=== PATIENT | female | born 1975 | race Caucasian/White ===

== ENCOUNTER 2018-10-28 16:38 | Emergency (ER) | payer OTHER, SELFPAY ==
[~2018-10-28] VITALS: Ht 160 cm; Wt 95.5 kg
[2018-10-28 16:39] VITALS: BP 165/90
[2018-10-28] MEDS ORDERED: ACETAMINOPHEN 325 MG TAB PO ONE (17:30)
[2018-10-28 18:16] LABS: BASO % 0.3 % (0.0-1.0); EOS % 0.3 % (0.0-3.0); HEMATOCRIT 37.4 % (36.0-47.0); HEMOGLOBIN 12.5 g/dl (12.0-15.5); LYMPH # 0.6 10^3/uL (1.5-4.5); LYMPH % 6.1 % (24.0-44.0); MEAN CORPUSCULAR HEMOGLOBIN 30.5 pg (27.0-33.0); MEAN CORPUSCULAR HGB CONC 33.4 g/dl (32.0-36.5); MEAN CORPUSCULAR VOLUME 91.2 fl (80.0-96.0); MONO # 0.4 10^3/uL (0.0-0.8); MONO % 4.4 % (0.0-5.0); NEUTROPHILS # 7.9 10^3/uL (1.8-7.7); NEUTROPHILS % 88.1 % (36.0-66.0); PLATELET COUNT, AUTOMATED 335 10^3/uL (150-450)
[2018-10-28 18:40] LABS: ALBUMIN 3.7 GM/DL (3.2-5.2); ALT/SGPT 271 U/L (12-78); BLOOD UREA NITROGEN 7 MG/DL (7-18); CALCIUM LEVEL 9.4 MG/DL (8.5-10.1); CARBON DIOXIDE LEVEL 27 MEQ/L (21-32); CHLORIDE LEVEL 102 MEQ/L (98-107); GLOMERULAR FILTRATION RATE > 60.0 (>58); GLUCOSE, FASTING 89 MG/DL (70-100); LIPASE 64 U/L (73-393); POTASSIUM SERUM 4.1 MEQ/L (3.5-5.1); SODIUM LEVEL 136 MEQ/L (136-145); TOTAL PROTEIN 6.9 GM/DL (6.4-8.2)
[2018-10-28] MEDS ORDERED: DOXY100C37 PO (18:54)
[2018-10-28] MEDS ORDERED: DOXYCYCLINE HYCLATE 100 MG TAB PO ONE (19:00)
--- NOTE | 2018-10-28 21:41 | ECGEPIP ---
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
[2018-10-31 14:12] LABS: Lyme Disease IgG Ab 18 kDa Ban Present (.); Lyme Disease IgG Ab 23 kDa Ban Present (.); Lyme Disease IgG Ab 28 kDa Ban Absent (.); Lyme Disease IgG Ab 30 kDa Ban Absent (.); Lyme Disease IgG Ab 39 kDa Ban Absent (.); Lyme Disease IgG Ab 41 kDa Ban Present (.); Lyme Disease IgG Ab 45 kDa Ban Absent (.); Lyme Disease IgG Ab 58 kDa Ban Absent (.); Lyme Disease IgG Ab 66 kDa Ban Absent (.); Lyme Disease IgG Ab 93 kDa Ban Absent (.); Lyme Disease IgG West Blot Int Negative (.); Lyme Disease IgG/IgM Antibodie 1.77 ISR (0.00-0.90); Lyme Disease IgM Ab 23 kDa Ban Present (.); Lyme Disease IgM Ab 39 kDa Ban Absent (.); Lyme Disease IgM Ab 41 kDa Ban Present (.); Lyme Disease IgM Ab Quantitati 5.75 index (0.00-0.79); Lyme Disease IgM West Blot Int Positive (.)
== END 2018-10-28 19:07 | disposition home or self-care (01) ==
LOC: M ED 16:38
DX: L53.8 Other specified erythematous conditions (principal); R50.9 Fever, unspecified; R94.5 Abnormal results of liver function studies; Z72.0 Tobacco use

== ENCOUNTER → 2019-07-11 | Outpatient (CLI) | payer OTHER ==
[~2019-07-11] MED LIST: DOXY100C37 PO
--- NOTE | 2019-07-18 10:12 | REP ---
BILATERAL MAMMOGRAM WITH 3D TOMOSYNTHESIS AND BILATERAL BREAST ULTRASOUND: [facility] lifetime risk of breast cancer 12.4%. History of palpable lump upper outer quadrant right breast for 3 weeks. Indentation and palpable lump left breast upper outer quadrant. Baseline study. Bilateral mammogram performed in the MLO and CC projections with 3D tomosynthesis. Additional spot compression views are performed bilaterally at the site of the marked palpable lump in the upper outer quadrant of each breast. There is moderate fibroglandular density bilaterally. There is a large spiculated mass in the upper outer quadrant of the left breast approximately 3.5 cm in diameter. The overlying skin is mildly retracted. Just anterior to this, there is a 1.5 cm oval nodule, which appears fairly smoothly marginated with mild lobulations. On the right, there is an oval nodule at 6-o'clock position in the mid third of the breast approximately 1.5 cm in diameter. This appears fairly smoothly marginated. In the posterior aspect of the upper outer quadrant of the right breast, there is a fairly smoothly marginated nodule approximately 1.7 cm in diameter. No other mass is visualized mammographically in the right breast. No clustered microcalcifications are seen. Breast parenchyma is moderately dense bilaterally, particularly in the upper outer quadrants. VOLPARA breast density is C. Real-time sonographic evaluation of bilateral breasts is performed. On the right, in the 8-o'clock position region at the site of the smoothly marginated nodule posteriorly, a hypoechoic area is seen demonstrating internal blood flow measuring 1.7 x 0.7 x 1.6 cm. This is at 8-o'clock position, 11 cm from the nipple. In that same region, 8 cm from the nipple, there is a 5 mm hypoechoic nodule. At the 6-o'clock position, at the site of the oval smoothly marginated nodule, there is a hypoechoic nodule with internal blood flow measuring 1.1 x 1.1 x 1.2 cm, 4 cm from the nipple. At the site of the palpable lump in the anterior to mid third of the right breast in the upper outer quadrant, there is a complex cystic area containing a septation with a posterior nodular component containing internal echoes. This measures 7 x 7 x 8 mm. In the left breast at the site of the palpable lump and skin retraction, where a large spiculated mass is seen on the mammogram, there is sonographic correlate of a spiculated mass containing internal blood flow measuring 4.5 x 2.3 x 1.5 cm. There is distal acoustic shadowing. This is 4 cm from the nipple. Anterior to this, at the site of the smoothly marginated nodule, is a hypoechoic nodule, which is somewhat lobulated. It measures 1.8 x 0.9 x 1.0 cm. IMPRESSION: BIRADS 4: BI-RADS/ACR category 4 mammogram. Suspicious Abnormality - biopsy should be considered. ACR 4 suspicious mammogram right breast. At the site of the palpable lump in the upper outer quadrant, there is a lobulated complex septated cystic structure with a posterior hypoechoic nodular component demonstrating a maximum diameter of 8 mm. More posteriorly, by mammography a 1.7 cm smoothly marginated nodule is seen which is hypoechoic and demonstrates internal blood flow by ultrasound. There is another adjacent 5 mm hypoechoic nodule. Another 1.2 cm hypoechoic nodule is seen at 6-o'clock position seen by both mammography and ultrasound. Recommend ultrasound guided biopsy of all four of these nodules, or alternatively, they could be evaluated with breast MRI. BIRADS 5: BI-RADS/ACR category 5 mammogram. Highly Suggestive of Malignancy - appropriate action should be taken. ACR 5 left breast mammogram, with findings compatible with cancer. Large spiculated mass is seen in the upper outer quadrant of the left breast. This is seen both mammographically and sonographically. Just anterior to this, a lobulated hypoechoic nodule is seen measuring 1.8 x 0.9 x 1.0 cm. This should be biopsied. This mammogram was interpreted with the aid of an FDA-approved computer-aided detection system. A. Negative x-ray reports should not delay biopsy if a dominant or clinically suspicious mass is present. B. Four to eight percent of cancers are not identified by x-ray. C. Adenosis and dense breasts may obscure an underlying neoplasm. The patient states she/he had a clinical breast exam in June 2019. The patient letter being requested is M4
== END ==
LOC: M WHC 08:48
PROVIDERS: ATTEND Physician Assistant
DX: N63.11 Unspecified lump in the right breast, upper outer quadrant (principal); N63.21 Unspecified lump in the left breast, upper outer quadrant
CPT/HCPCS: 76642; 77066; G0279

== ENCOUNTER → 2019-07-25 | Outpatient (REF) | payer OTHER ==
[2019-07-25 12:25] LABS: BLOOD UREA NITROGEN 11 MG/DL (7-18); CALCIUM LEVEL 9.5 MG/DL (8.5-10.1); CARBON DIOXIDE LEVEL 26 MEQ/L (21-32); CHLORIDE LEVEL 106 MEQ/L (98-107); CREATININE FOR GFR 0.82 MG/DL (0.55-1.30); GLOMERULAR FILTRATION RATE > 60.0 (>58); GLUCOSE, FASTING 97 MG/DL (70-100); SODIUM LEVEL 140 MEQ/L (136-145)
== END ==
LOC: M PLALAB 08:39
PROVIDERS: ATTEND Surgery
DX: C50.912 Malignant neoplasm of unspecified site of left female breast (principal)

== ENCOUNTER → 2019-07-26 | Outpatient (CLI) | payer OTHER ==
[~2019-07-26] MED LIST changes: +PROHANCE 279.3MG/ML 15ML VIAL As Ordered ONE; +PROHANCE 279.3MG/ML 5ML VIAL As Ordered ONE
--- NOTE | 2019-07-29 11:10 | REP ---
MRI BILATERAL BREASTS WITH AND WITHOUT CONTRAST: HISTORY: Invasive lobular carcinoma left breast. COMPARISON: Mammogram and ultrasound 07/11/2019. TECHNIQUE: Multiple sequences obtained the in axial, coronal, and sagittal planes prior to and following the intravenous administration of 17 mL ProHance. The images are evaluated on the BigRep software including dynamic post-IV gadolinium axial T1 fat sat images, subtraction images, color overlay images, CAD images and MIP reconstruction images. Moderate fibroglandular tissue is seen bilaterally. There is moderate background parenchymal enhancement bilaterally. There are scattered subcentimeter cysts bilaterally. A round hyperintense nodule on T2-weighted images is seen in the upper outer quadrant of the left breast, which demonstrates mild persistent enhancement consistent with a fibroadenoma. This measures approximately 1.4 cm in diameter. More posteriorly in the outer left breast, extending into the upper and lower quadrants, is a large spiculated mass. This is the mass that was biopsied, with biopsy clip noted within the mass. There is a small amount of postbiopsy hemorrhage along the margin of the mass. The mass measures 4.2 x 2.8 x 2.7 cm. It is located approximately 6 cm from the nipple. A lobulated 7 mm nodule is seen along the anterior lateral margin of the mass at its superior aspect. This demonstrates suspicious washout enhancement, as does the spiculated mass. Just anterior to the mid aspect of the mass is a 6 mm suspicious nodule with irregular margins also demonstrating washout type enhancement. This is suspicious for a small satellite nodule. Another small satellite nodule is seen along the inferior margin of the mass measuring 4 mm in diameter. Approximately 2 cm anterior to the dominant spiculated mass in the lower outer quadrant is a 6 mm spiculated nodule demonstrating suspicious enhancement characteristics. At about the 12-o'clock position, There is an oval spiculated mass demonstrating suspicious enhancement characteristics approximately 4 cm from the nipple. This measures 8 x 6 x 11 mm. Posterolateral to this irregular mass at 12-o'clock position, there may be two 3 mm satellite nodules with suspicious enhancement. There appear to be two adjacent 3 mm nodules demonstrating suspicious enhancement 2 cm posterior to the superior margin of the spiculated dominant mass. In the right breast, posterolateral aspect at about the level of the nipple, is an irregular heterogeneous enhancing nodule. Measuring about 1.2 cm in diameter. This demonstrates some central washout enhancement and is suspicious. Several normal sized left axillary lymph nodes are present. There is a mildly enlarged right axillary lymph node in addition to other subcentimeter lymph nodes. The mildly enlarged lymph node measures about 1.6 cm in short axis. IMPRESSION: BIRADS category 6 known breast cancer. The biopsied spiculated mass in the outer left breast demonstrates suspicious enhancement. There is a biopsy clip noted at the inferior margin of the mass. There are several small subcentimeter suspicious satellite nodules seen, one just inferior to the dominant mass and two others along the anterior margin of the mass. Another suspicious nodule is seen 2 cm anterior to the dominant mass at it inferior aspect. Yet another suspicious oval irregular nodule is seen at 12-o'clock position of the left breast. Posterolateral to this irregular mass at 12-o'clock position, there may be two 3 mm satellite nodules with suspicious enhancement. There appear to be two adjacent 3 mm nodules demonstrating suspicious enhancement 2 cm posterior to the superior margin of the spiculated dominant mass. A nodule most consistent with a fibroadenoma is seen in the upper outer quadrant of the left breast measuring 1.4 cm in diameter demonstrating smooth margins and central persistent enhancement. In the right breast, at the level of the nipple posterolaterally in the axillary tail, there is an irregular heterogeneous enhancing suspicious nodule 1.2 cm in diameter. This was seen on the ultrasound of 07/18/2019. This should be biopsied. There is a mildly enlarged right axillary lymph node 1.5 cm in short axis. Electronically Signed by August Harp MD 07/29/2019 12:17 P
== END ==
LOC: M RAD 14:49
PROVIDERS: ATTEND Surgery
DX: C50.912 Malignant neoplasm of unspecified site of left female breast (principal); N63.10 Unspecified lump in the right breast, unspecified quadrant; R59.9 Enlarged lymph nodes, unspecified
CPT/HCPCS: A9576; C8908

== ENCOUNTER → 2019-08-20 | Outpatient (REF) | payer OTHER ==
[~2019-08-20] MED LIST changes: -PROHANCE 279.3MG/ML 15ML VIAL As Ordered ONE; -PROHANCE 279.3MG/ML 5ML VIAL As Ordered ONE
[2019-08-20 11:03] LABS: HEMATOCRIT 37.7 % (36.0-47.0); HEMOGLOBIN 12.7 g/dl (12.0-15.5); MEAN CORPUSCULAR HEMOGLOBIN 31.1 pg (27.0-33.0); MEAN CORPUSCULAR HGB CONC 33.7 g/dl (32.0-36.5); MEAN CORPUSCULAR VOLUME 92.2 fl (80.0-96.0); PLATELET COUNT, AUTOMATED 261 10^3/uL (150-450); RED BLOOD COUNT 4.09 10^6/uL (4.00-5.40); WHITE BLOOD COUNT 6.4 10^3/uL (4.0-10.0)
[2019-08-20 12:45] LABS: ALBUMIN 3.9 GM/DL (3.2-5.2); ALT/SGPT 27 U/L (12-78); BILIRUBIN,TOTAL 0.7 MG/DL (0.2-1.0); BLOOD UREA NITROGEN 9 MG/DL (7-18); CALCIUM LEVEL 9.8 MG/DL (8.5-10.1); CARBON DIOXIDE LEVEL 28 MEQ/L (21-32); CHLORIDE LEVEL 107 MEQ/L (98-107); CHOLESTEROL LEVEL 214 MG/DL (<200); CREATININE FOR GFR 0.72 MG/DL (0.55-1.30); GLOMERULAR FILTRATION RATE > 60.0 (>58); GLUCOSE, FASTING 109 MG/DL (70-100); HDL CHOLESTEROL 50 MG/DL (>40); LDL CHOLESTEROL 142 MG/DL (<100); NON-HDL-C 164 MG/DL; POTASSIUM SERUM 4.3 MEQ/L (3.5-5.1); SODIUM LEVEL 138 MEQ/L (136-145); THYROID STIMULATING HORMONE 0.425 uIU/ML (0.358-3.740); TOTAL 25(OH) VITAMIN D 27.2 NG/ML (30.0-100.0); TOTAL PROTEIN 6.6 GM/DL (6.4-8.2); TRIGLYCERIDES LEVEL 110 MG/DL (<150)
== END ==
LOC: M PLALAB 08:10
PROVIDERS: ATTEND Nurse Practitioner Family
DX: R53.83 Other fatigue (principal); R03.0 Elevated blood-pressure reading, without diagnosis of hypertension

== ENCOUNTER → 2019-08-23 | Outpatient (CLI) | payer OTHER ==
[~2019-08-23] MED LIST changes: +PROHANCE 279.3MG/ML 15ML VIAL As Ordered ONE; +PROHANCE 279.3MG/ML 5ML VIAL As Ordered ONE
--- NOTE | 2019-08-23 15:57 | REPVR ---
PROCEDURE INFORMATION: Exam: MR Head Without and With Contrast Exam date and time: 08/23/2019 2:53 PM Age: 44 years old Clinical indication: Condition or disease; History of cancer (specify primary cancer site): ; Primary cancer: Breast; Additional info: Breast CA ? mets TECHNIQUE: Imaging protocol: MR of the head without and with intravenous contrast. Contrast material: PROHANCE; Contrast volume: 17 ml; Contrast route: IV; COMPARISON: No relevant prior studies available. FINDINGS: Brain: There is no acute intracranial hemorrhage, cerebral edema, or midline shift. No restricted diffusion is present to suggest acute infarction. No enhancing lesions were identified after the administration of contrast. Ventricles: No hydrocephalus. Bones/joints: Unremarkable. Sinuses: Normal as visualized. No acute sinusitis. Mastoid air cells: Normal as visualized. No mastoid effusion. Orbits: Unremarkable. Soft tissues: Unremarkable. IMPRESSION: No acute findings. Electronically signed by: Vicenet Padilla On 08/23/2019 15:56:44 PM
== END ==
LOC: M RAD 13:45
PROVIDERS: ATTEND Internal Medicine Medical Oncology
DX: C50.919 Malignant neoplasm of unspecified site of unspecified female breast (principal)
CPT/HCPCS: 70553; A9576

== ENCOUNTER → 2019-08-27 | Outpatient (CLI) | payer OTHER ==
[~2019-08-27] MED LIST changes: +LIDOCAINE 1% MDV 20ML VIAL As Ordered ONE; -PROHANCE 279.3MG/ML 15ML VIAL As Ordered ONE; -PROHANCE 279.3MG/ML 5ML VIAL As Ordered ONE; +SODIUM BICARBONATE 8.4% INJ 50MEQ 50 ML VIAL As Ordered ONE
[2019-08-27 12:15] VITALS: BP 140/88
--- NOTE | 2019-08-27 14:23 | REP ---
RIGHT AXILLARY ULTRASOUND: Right axillary ultrasound performed and correlated with the breast MRI of 07/26/2019 which demonstrated enlarged right axillary lymph node. I observed the technologist in real-time scanning the right axillary region. A lymph node is identified in the right axillary region, which is mildly enlarged. It measures 2.2 x 0.9 x 1.6 cm. Ultrasound-guided biopsy of this lymph node is subsequently performed. Unreviewed
--- NOTE | 2019-08-28 21:34 | REP ---
ULTRASOUND-GUIDED RIGHT BREAST BIOPSY The procedure was performed under the direct supervision of Dr. Harp. The patient has a history of a mildly enlarged right axillary lymph node seen on a previous MRI dated 07/26/2019. The risks and benefits of the procedure were explained to the patient and informed consent was obtained. The right axillary lymph node was localized using ultrasound guidance. The skin was prepped and draped in a sterile fashion. 1% lidocaine was used as a local anesthetic. Using ultrasound guidance a 14-gauge coaxial needle biopsy system was inserted and advanced into the lymph node. Seven core biopsy samples were obtained and sent to lab. A marker clip was placed at the biopsy site. The patient tolerated the procedure well and there were no immediate complications. After the appropriate amount of monitored convalescence the patient was discharged from the department. Electronically Signed by LUIS EDUARDO Delgado 08/27/2019 03:47 P Electronically Signed by August Harp MD 08/28/2019 09:26 P
== END ==
LOC: M IRPRO 10:25
PROVIDERS: ATTEND Surgery
DX: R59.0 Localized enlarged lymph nodes (principal); R92.8 Other abnormal and inconclusive findings on diagnostic imaging of breast; C50.912 Malignant neoplasm of unspecified site of left female breast; Z17.0 Estrogen receptor positive status [ER+]

== ENCOUNTER → 2019-08-27 | Outpatient (CLI) | payer OTHER ==
[~2019-08-27] MED LIST changes: -LIDOCAINE 1% MDV 20ML VIAL As Ordered ONE; -SODIUM BICARBONATE 8.4% INJ 50MEQ 50 ML VIAL As Ordered ONE
== END ==
LOC: M WHC 08:28
PROVIDERS: ATTEND Surgery
DX: C50.912 Malignant neoplasm of unspecified site of left female breast (principal); Z17.0 Estrogen receptor positive status [ER+]; R59.0 Localized enlarged lymph nodes; Z53.9 Procedure and treatment not carried out, unspecified reason

== ENCOUNTER → 2019-09-03 | Outpatient (CLI) | payer OTHER ==
[~2019-09-03] MED LIST changes: +GASTROGRAFIN SOLUTION 30ML (Q9963) As Ordered ONE; +ISOVUE-370 76% 100ML VIAL As Ordered ONE
--- NOTE | 2019-09-03 13:53 | REP ---
REASON: History of breast carcinoma. COMPARISON: None. CONTRAST: 100 mL Isovue 370. For a description of the lung bases, please see the CT chest report made the same day. There are surgical clips seen in the gallbladder fossa from previous cholecystectomy. The liver, spleen, pancreas, adrenal glands, and kidneys are within normal limits. The abdominal aorta and paraaortic regions are within normal limits. The intra-abdominal and intrapelvic bowel loops and their mesenteries are within normal limits. There is no free fluid or free air in the abdomen or pelvis. There is no evidence of an intra-abdominal or intrapelvic mass or adenopathy. Bone window technique through the examination showed the osseous structures to be within normal limits. There is bilateral L5 spondylolysis. IMPRESSION: No acute disease. Electronically Signed by Bairon Rocha DO 09/03/2019 01:55 P
--- NOTE | 2019-09-03 13:56 | REP ---
REASON: History of breast carcinoma. PRIORS: None. CONTRAST: 100 mL Isovue 370. There is no mediastinal, hilar or axillary adenopathy. There are no pleural or pericardial effusions. For description of the imaged upper abdomen, seen the CT abdomen and pelvis report made the same day. Bone window technique throughout the exam shows the osseous structures to be within normal limits. Evaluation of the lung soliman shows a 4 mm sized nodule in the lateral periphery of the right middle lobe. No other abnormal nodules, masses, or opacities are present. IMPRESSION: 4 mm sized right middle lobe nodule. According to the revised Fleischner Society criteria a 6-month followup examination is recommended. Electronically Signed by Bairon Rocha DO 09/03/2019 05:03 P
--- NOTE | 2019-09-03 14:32 | REP ---
WHOLE BODY RADIONUCLIDE BONE SCAN: HISTORY: Breast carcinoma. No comparison bone scan. TECHNIQUE: 21.8 mCi technetium 99m MDP is injected and standard whole body bone scan imaging was acquired. SCINTIGRAPHIC FINDINGS: There is a normal distribution of skeletal tracer with uptake in bilateral kidneys and the urinary bladder. No focal uptake is seen in the axial or appendicular skeleton to suggest metastatic disease. IMPRESSION: Negative whole body radionuclide bone scan. No scintigraphic evidence to suggest metastatic disease. Electronically Signed by Stephen Phillip MD 09/04/2019 08:08 A
== END ==
LOC: M RAD 09:57
PROVIDERS: ATTEND Internal Medicine Medical Oncology
DX: C50.919 Malignant neoplasm of unspecified site of unspecified female breast (principal)
CPT/HCPCS: 71260; 74177; 78306; A9503; Q9963; Q9967

== ENCOUNTER → 2019-09-05 | Outpatient (CLI) | payer OTHER ==
[~2019-09-05] MED LIST changes: -GASTROGRAFIN SOLUTION 30ML (Q9963) As Ordered ONE; -ISOVUE-370 76% 100ML VIAL As Ordered ONE; +LIDOCAINE 1% MDV 20ML VIAL As Ordered ONE; +MIDAZOLAM INJ 2MG/2ML VIAL (J2250 PER 1MG) As Ordered ONE; +VITAD1000T PO; +ceFAZolin 1GM VIAL (J0690 PER 500MG) As Ordered ONE; +diphenhydrAMINE 50MG/ML VIAL (J1200) As Ordered ONE; +fentaNYL 100 MCG/2 ML INJECTION (J3010) As Ordered ONE
--- NOTE | 2019-09-05 13:30 | IRHP ---
[facility] IR Pre-Procedure H & P General Date of Service: Sep 05, 2019 Procedure: Same Day Surgery Interval History and Physical I have seen the patient and reviewed last H & P performed within 30 days. There is no significant interval change. History of Present Illness Chief Complaint The patient is a 44-year-old female admitted with a reason for visit of Breast Ca. PRE-PROCEDURE DIAGNOSIS: breast cancer HEART: normal rate. LUNGS: normal breathing at rest. ASA Classification ASA Classification: II-Mild systemic disease Mallampati Score: II NPO: Yes Problems with prior sedation: No Obstructive Sleep Apnea: No Plan moderate sedation Allergies Coded Allergies: No Known Allergies (Verified Allergy, Unknown, 10/28/18) Home Medications No Active Prescriptions or Reported Meds VS, I&O, 24H, Fishbone Vital Signs/I&O Vital Signs Date Time Temp Pulse Resp B/P (MAP) Pulse Ox O2 Delivery O2 Flow Rate FiO2 09/05/19 13:17 98.6 72 16 99 Room Air HELLEN ROBERT MD Sep 05, 2019 13:30
--- NOTE | 2019-09-05 14:55 | POST-OPPD ---
Postoperative Procedure Note Date Of Procedure: Sep 05, 2019 Time Of Procedure: 14:53 PREOPERATIVE DIAGNOSIS:breast cancer POSTOPERATIVE DIAGNOSIS: same FINDINGS: patent right IJ PROCEDURE: right sided port placed SURGEON: Villa ANESTHESIA: mod sed ESTIMATED BLOOD LOSS: < 5 ml COMPLICATIONS: none POSTOPERATIVE CONDITION: stable HELLEN ROBERT MD Sep 05, 2019 14:55
[2019-09-05 16:30] VITALS: BP 134/83
--- NOTE | 2019-09-09 14:42 | REP ---
IR Ultrasound and fluoroscopy-guided port placement. IR Ultrasound of the neck. IR Moderate sedation. Clinical information: Left-sided breast cancer. Physician: Dr. Driver. Procedure: The patient was advised of the benefits, risks, and alternatives of the procedure and informed consent was obtained. A time-out was performed with verification of the patient's name, MRN, site of procedure and type of procedure to be performed. The patient was positioned in the supine position on the angiographic table. The site was prepped and draped in the usual sterile fashion. Moderate sedation was performed by the physician including the presence of an independent trained observer who assisted and monitored the patient's level of consciousness and physiologic status. Following the administration of fentanyl and Versed , the physician spent 30 minutes of continuous face to face time with the patient. Ultrasound of the neck reveals a patent and compressible right internal jugular vein. A applications programmer radiograph reveals no gross abnormality. The neck and anterior chest wall were anesthetized with lidocaine. The right internal jugular vein was accessed using a microintroducer needle under ultrasound guidance, via a lateral approach. An 018 wire was advanced into the superior vena cava, the needle was removed and a microsheath was placed. An Amplatz wire was then passed into the inferior vena cava. An incision at the internal jugular vein access site and anterior chest wall were made using a scalpel. An incision was made at the anterior chest wall. A small pocket was created using a combination of blunt and sharp dissection. A tunneling device was then used to pass the catheter from the pocket to the neck puncture site. An 8-Telugu Angio Hurray! Smart power port was then positioned in the pocket. The catheter was then measured and cut. The introducer sheath was exchanged for a peel-away sheath. The catheter was passed through the peel-away sheath into the internal jugular vein and the peel-away sheath was removed. The port tip was positioned at the cavoatrial junction. The port was then accessed with a Sorto needle. The port flushes and aspirates well. The puncture site in the neck was closed. The chest wall incision was then closed with 2-0 Vicryl and 4-0 Monocryl. Glue and Steri-Strips were applied. A sterile dressing was then applied. The patient tolerated the procedure well and was returned to the PRU in stable condition. Estimated blood loss: <5 ml. Complications: None. Conclusion: 1. Successful placement of an 8-Telugu Angio dynamics Smart power port via the right internal jugular vein. The port is ready for immediate use. 2. Patient to follow up in IR clinic in 2 weeks. Thank you for this referral. Electronically Signed by Shraddha Driver MD 09/09/2019 02:41 P
== END ==
LOC: M IRPRO 12:56
PROVIDERS: ATTEND Internal Medicine Hematology & Oncology
DX: C50.912 Malignant neoplasm of unspecified site of left female breast (principal)
CPT/HCPCS: 36561; 99152; 99153; C1769; C1788; C1894; J0690; J1200; J1642; J1644; J2250; J3010

== ENCOUNTER → 2019-09-11 | Outpatient (CLI) | payer OTHER ==
[~2019-09-11] MED LIST changes: -LIDOCAINE 1% MDV 20ML VIAL As Ordered ONE; -MIDAZOLAM INJ 2MG/2ML VIAL (J2250 PER 1MG) As Ordered ONE; -ceFAZolin 1GM VIAL (J0690 PER 500MG) As Ordered ONE; -diphenhydrAMINE 50MG/ML VIAL (J1200) As Ordered ONE; -fentaNYL 100 MCG/2 ML INJECTION (J3010) As Ordered ONE
--- NOTE | 2019-09-12 06:54 | ECHO ---
DATE OF STUDY: 09/11/2019 REFERRING PHYSICIAN: Dr. Santhosh Santos INDICATION: Chemotherapy drugs that may affect the heart. HEIGHT: 63 inches. WEIGHT: 190 pounds. 2-D MEASUREMENTS: Aortic root: 3.4 cm Left atrium: 3.4 cm Left ventricle diastole: 4.3 cm Ventricular septum: 1.03 cm Posterior wall: 1.02 cm Aortic annulus: 2.1 cm Inferior vena cava: 1.7 cm with normal respiratory variation DOPPLER MEASUREMENTS: No aortic regurgitation Aortic valve velocity: 126 cm/sec LVOT velocity: 92.0 cm/sec LVOT VTI: 20.5 cm Very mild mitral regurgitation Mitral E velocity: 75.0 cm/sec Mitral A velocity: 75.4 cm/sec Mitral deceleration time: 230 ms Very mild tricuspid regurgitation No pulmonic regurgitation Pulmonary artery acceleration time: 164 ms MITRAL ANNULAR TISSUE DOPPLER: E prime septal: 7.4 cm/sec E prime lateral: 10.6 cm/sec DESCRIPTION: The rhythm was sinus. Image quality was fair. This was a 2-D, M-mode, color flow Doppler and pulse wave Doppler examination and included mitral annular tissue Doppler. CONCLUSIONS: 1. Normal left ventricle internal dimensions and wall thickness. Normal regional LV wall motion and wall thickening. Normal LV systolic function. LVEF 65% by visual estimate. Normal longitudinal peak strain pattern of the left ventricle. Normal LV diastolic function for age. 2. Normal right ventricle size and systolic function. Pulmonary artery systolic pressure not elevated. 3. No pericardial effusion. 4. Otherwise normal appearing echocardiogram Doppler.
== END ==
LOC: M CARPUL 10:03
PROVIDERS: ATTEND Internal Medicine Hematology & Oncology
DX: C50.919 Malignant neoplasm of unspecified site of unspecified female breast (principal)

== ENCOUNTER → 2019-10-08 | Outpatient (CLI) | payer OTHER ==
[~2019-10-08] MED LIST changes: +D31000TA2 PO; +DECA4TAB PO; +GABA-843 PO; +PROC5TAB57 PO; -VITAD1000T PO; +ZOFR4TAB16 PO
--- NOTE | 2019-10-08 08:34 | PFTRPT ---
Height: 63.00 Inches Weight: 190.00 Lbs BSA: 1.89 Diagnosis: R91.1 DATE OF PROCEDURE: 10/08/2019 ORDERED BY: Dr. Lombardo Spirometry: Pre and post bronchodilator study of excellent technical quality. Forced vital capacity normal. FEV1 in proportion. Obstructive index is, therefore, normal. Flow Volume Loop: Expiratory limb of the flow volume loop is normal. No significant bronchodilator response identified. Lung Volumes: Total lung capacity normal. Residual volume in proportion. Diffusing Capacity: Diffusing capacity normal. Hemoglobin: Hemoglobin borderline at 11.7. Airway Mechanics: Airway resistance and conductance are normal. IMPRESSION: Mild underlying anemia. Otherwise, normal study. MTDD
== END ==
LOC: M CARPUL 07:56
PROVIDERS: ATTEND Internal Medicine Pulmonary Disease
DX: R91.1 Solitary pulmonary nodule (principal)

== ENCOUNTER → 2019-12-24 | Outpatient (CLI) | payer OTHER ==
--- NOTE | 2019-12-30 14:04 | REP ---
LEFT BREAST ULTRASOUND: 12/24/19 HISTORY: Assess left breast following chemotherapy. History of left breast cancer. COMPARISON: 07/11/19 Real time sonographic evaluation of the left breast performed at the site of the previously noted spiculated irregular hypoechoic mass in the upper outer quadrant. This was biopsied subsequent to the 07/11/19 ultrasound and was cancerous. Today the mass measures 1.6 x 2.6x 2.0cm. This has decreased in size since the prior study at which time it measured 4.5 x 1.5 x 2.3cm. Anterior to this mass is another hypoechoic nodule. This measures 1.1 x 1.4 x 0.8cm and has also mildly decrease din size, previously measuring 1.8 x 1.0 x 0.9cm. IMPRESSION: BI-Rads category 6, known left breast cancer. Two masses identified in the upper outer quadrant of the left breast have both decreased in size compared to the prior study of 07/11/19 following chemotherapy, as discussed in detail above. MTDD
== END ==
LOC: M WHC 08:25
PROVIDERS: ATTEND Internal Medicine Hematology & Oncology
DX: C50.912 Malignant neoplasm of unspecified site of left female breast (principal); Z92.21 Personal history of antineoplastic chemotherapy

== ENCOUNTER → 2020-02-20 | Outpatient (CLI) | payer OTHER ==
[~2020-02-20] MED LIST changes: +NAPR-837 PO
== END ==
LOC: M PLALAB 10:24
PROVIDERS: ATTEND Surgery
DX: Z13.71 Encounter for nonprocreative screening for genetic disease carrier status (principal)

== ENCOUNTER → 2020-03-17 | Outpatient (CLI) | payer OTHER ==
[~2020-03-17] MED LIST changes: +PROHANCE 279.3MG/ML 15ML VIAL As Ordered ONE; +PROHANCE 279.3MG/ML 5ML VIAL As Ordered ONE
--- NOTE | 2020-03-17 12:37 | REP ---
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 The patient is status post neoadjuvant chemotherapy. COMPARISON: Comparison breast MRI study is from July 26, 2019. TECHNIQUE: Three Negin MRI imaging was performed with a dedicated breast coil. Axial, coronal, and sagittal T1 and T2 weighted scans were obtained with and without fat saturation in the usual fashion. The study includes dynamically acquired post gadolinium-enhanced imaging with image subtraction. Maximum intensity projection and multi planar reformation imaging is included as well. This study is interpreted with the aid of [employer]he[employer], an FDA approved computer aided detection (CAD) software program, on a dedicated breast MRI workstation. The gadolinium enhancement dose is 16 mL of intravenous ProHance. FINDINGS: Findings show significant improvement. In the left breast anteriorly and superiorly at approximately 12 o'clock, there is an 8 mm area of enhancement which previously measured 11 mm. This shows plateau type 2 enhancement on dynamic post-contrast images today. More posteriorly and laterally in the area where previous study showed a large spiculated biopsy-proven malignancy, there are a few foci of residual type 2 and type 3 enhancement. This area is much improved. There is a spiculated residual mass effect 0 ever measuring 1.5 cm and some residual enhancement as above. There is no evidence of axillary adenopathy. The other previously described satellite areas of enhancement in the left breast are no longer apparent. The nodular area of enhancement in the right posterolateral breast on the previous study has resolved. No new area of abnormal morphology or enhancement is seen in either breast. There is magnetic field susceptibility artifact from a right-sided Ykcvsa-I-Hyxf catheter. IMPRESSION: Significant improvement although not complete resolution of previous findings. There is a residual 1.5 cm spiculated mass in the left breast with a few foci of persistent type 2 enhancement. There is a 2nd focus of nodular enhancement at 12 o'clock in the anterior 3rd of the left breast which also has decreased in size. No new abnormality is observed. The previously noted right-sided findings are resolved. BI-RADS category 6 known left breast malignancy. <Electronically signed by Denny Phillip > 03/17/20 [id number]
== END ==
LOC: M RAD 09:41
PROVIDERS: ATTEND Surgery
DX: C50.912 Malignant neoplasm of unspecified site of left female breast (principal)
CPT/HCPCS: A9576; C8908

== ENCOUNTER → 2020-03-26 | Outpatient (CLI) | payer OTHER ==
[~2020-03-26] MED LIST changes: -PROHANCE 279.3MG/ML 15ML VIAL As Ordered ONE; -PROHANCE 279.3MG/ML 5ML VIAL As Ordered ONE
== END ==
LOC: M LABSMTC 13:21
PROVIDERS: ATTEND Anesthesiology
DX: Z01.812 Encounter for preprocedural laboratory examination (principal); Z20.822 Contact with and (suspected) exposure to COVID-19

== ENCOUNTER 2020-03-31 06:36 | Observation (INO) | payer OTHER ==
[~2020-03-31] VITALS: Ht 160 cm; Wt 79.8 kg
[~2020-03-31 06:36] MED LIST changes: +GABA-282 PO; -GABA-843 PO; +HEPARIN SOD (PORCINE) 5000UNITS/ML 1ML VIAL/SYRINGE SQ ONE; +LR 1,000 ML IV ONE; +ceFAZolin SOD 2 GM in IV 1 EA IV ONE
[2020-03-31] MEDS ORDERED: propofoL 200 MG/20 ML VIAL As Ordered ONE ×3 (09:01→17:33)
[2020-03-31] MEDS ORDERED: LIDOCAINE 2% 100MG/5ML SDV (FOR ANES.) As Ordered ONE ×3 (09:01→14:33)
[2020-03-31] MEDS ORDERED: ROCURONIUM BROMIDE 50 MG/5 ML VIAL As Ordered ONE ×3 (09:01→13:42)
[2020-03-31] MEDS ORDERED: MIDAZOLAM INJ 2MG/2ML VIAL (J2250 PER 1MG) As Ordered ONE (09:02)
[2020-03-31] MEDS ORDERED: dexameTHASONE 4 MG/ML 1ML VIAL (J1100 PER 1MG) As Ordered ONE (09:02)
[2020-03-31] MEDS ORDERED: ONDANSETRON 4MG/2ML VIAL As Ordered ONE (09:02)
[2020-03-31] MEDS ORDERED: fentaNYL 100 MCG/2 ML INJECTION (J3010) As Ordered ONE ×3 (09:02→16:15)
[2020-03-31] MEDS ORDERED: KETOROLAC 60MG 2ML VIAL As Ordered ONE (09:11)
[2020-03-31] MEDS ORDERED: ACETAMINOPHEN 1000MG 100ML IV BTL (OFIRMEV) (J0131 PER 10MG) As Ordered ONE ×2 (09:24→17:18)
[2020-03-31] MEDS ORDERED: LACRILUBE (AKWA TEARS) OPHTH OINT 3.5 GM As Ordered ONE (10:14)
[2020-03-31] MEDS ORDERED: LIDOCAINE 1% MDV 20ML VIAL As Ordered ONE (10:28)
[2020-03-31] MEDS ORDERED: BACITRACIN PWD 50,000 UNITS VIAL As Ordered ONE (10:29)
[2020-03-31] MEDS ORDERED: BUPIVACAINE LIPOSOME/PF 1.3% 20ML VIAL (13.3MG/ML)(EXPAREL)(C9290 PER1MG) As Ordered ONE (10:29)
[2020-03-31] MEDS ORDERED: METHYLENE BLUE 0.5% (5MG/ML) 10 ML AMP (PROVAYBLUE) As Ordered ONE (11:23)
--- NOTE | 2020-03-31 11:35 | REP ---
INDICATION: BILATERAL BREAST BX INJ 9:30 SCAN 10A. COMPARISON: None. TECHNIQUE/RADIOTRACER AND DOSE: This procedure was performed by Janine Garcia RUST, under the direct supervision of Dr. Harp. Images were reviewed with Dr. Harp prior to dictation. The risks and benefits of the procedure were explained to the patient and informed consent was obtained both orally and written. Directly prior to the start of the procedure, a formal timeout was done in the exam room. Using topical anesthetic and sterile technique 1.014 mCi of filtered Technetium-99m sulfur colloid was injected subdermally in 8 fractionated periareolar injections around the left areola. Using topical anesthetic in sterile technique 1.019 mCi of filtered Technetium-99m sulfur colloid was injected subdermally it 8 fractionated periareolar injections around the right areola. FINDINGS: Images obtained 1 hour after injection show focal uptake in the bilateral axillae. IMPRESSION: There is focal uptake in the bilateral axillae. <Electronically signed by Janine Garcia > 03/31/20 [id number] <Electronically signed by August Harp > 03/31/20 1132
[2020-03-31] MEDS ORDERED: METOCLOPRAMIDE INJ 10MG/2ML VIAL (J2765 PER 1) As Ordered ONE (15:37)
[2020-03-31] MEDS ORDERED: SUGAMMADEX SODIUM 500 MG/5 ML VIAL (BRIDION) As Ordered ONE (15:37)
[2020-03-31] MEDS ORDERED: ceFAZolin 2 GM/D5W 50 ML IV BAG (J0690 PER 500MG) As Ordered ONE (16:02)
[2020-03-31] MEDS ORDERED: PHENYLephrine 500MCG 5ML (100MCG/ML) SYRINGE As Ordered ONE (16:47)
--- NOTE | 2020-03-31 18:18 | POST-OPPD ---
Postoperative Procedure Note Date Of Procedure: Mar 31, 2020 PREOPERATIVE DIAGNOSIS: Bilateral breast acquired deformity s/p bilateral mastectomy. POSTOPERATIVE DIAGNOSIS: same FINDINGS: Bilateral absence of breast and nipples. Implant: [place] 450cc smooth. Both filled to 150 cc NS. PROCEDURE: Bilateral immediate post mastectomy reconstruction with placement of tissue expanders. SURGEON: Dr Miranda AGENCY SALES MANAGEMENT ASSISTANT: Dr Samuels ANESTHESIA: General SPECIMENS: none ESTIMATED BLOOD LOSS: 25cc REPLACED: none DRAINS: Ron round 15 Fr x 4 COMPLICATIONS: none POSTOPERATIVE CONDITION: stable Dictation: [id number] OTTO MIRANDA DO Mar 31, 2020 18:18
[2020-03-31] MEDS ORDERED: oxyCODONE 5MG TAB PO PRN ×2 (18:45)
[2020-03-31] MEDS ORDERED: ACETAMINOPHEN TAB 650MG DOSE (2X325MG) PO PRN (18:45)
[2020-03-31] MEDS ORDERED: fentaNYL 100 MCG/2 ML INJECTION (J3010) IV PRN (18:45)
[2020-03-31] MEDS ORDERED: PROMETHAZINE INJ 25 MG/ML VIAL (J2550) IV PRN (18:45)
[2020-03-31] MEDS ORDERED: LR 1,000 ML IV SCH (18:45)
[2020-03-31] MEDS ORDERED: METOCLOPRAMIDE INJ 10MG/2ML VIAL (J2765 PER 1) IV PRN (18:45)
[2020-03-31] MEDS ORDERED: ONDANSETRON 4MG/2ML VIAL IV PRN ×2 (18:45)
[2020-03-31] MEDS ORDERED: MORPHINE 2 MG/ML 1ML VIAL (J2270) IV PRN (18:45)
[2020-03-31] MEDS ORDERED: HYDROMORPHONE HCL 0.5 MG/ 0.5 ML SYRINGE (J1170 PER 1) IV PRN (18:45)
--- NOTE | 2020-03-31 19:32 | REP ---
INDICATION: POST OP. COMPARISON: None TECHNIQUE: Portable exam FINDINGS: Artifacts, likely in the form of soft tissue drainage tubes, are seen in each lung field. Additional artifacts, likely ports to soft tissue expanders also 1 seen superimposed over each lung field. The lung soliman are clear. The heart is not enlarged. The pleural angles are sharp. The osseous structures are within normal limits. IMPRESSION: There is no evidence of acute cardiopulmonary disease. <Electronically signed by Bairon Rocha > 03/31/20 [id number]
[2020-03-31 19:45] VITALS: BP 131/77
[2020-03-31] MEDS: NS 1,000 ML IV SCH (19:47)
[2020-03-31 20:30] VITALS: BP 130/78
[2020-03-31] MEDS: ceFAZolin SOD 2 GM in IV 1 EA IV SCH (21:46)
[2020-03-31 22:00] VITALS: BP 133/76
--- NOTE | 2020-03-31 22:11 | HPEPDOC ---
[facility] Medical History & Physical Date of Admission Mar 31, 2020 Date of Service: Mar 31, 2020 History and Physical CHIEF COMPLAINT: Bilateral mastectomy HISTORY OF PRESENT ILLNESS: I was asked by Dr Samuels to admit her surgical patient Ms. Payan for observation post bilateral mastectomy, reconstruction with placement of tissue expanders. Patient was seen postoperatively at bedside she says she's feeling well overall says her pain is well controlled has no discomfort otherwise. Was on the phone speaking with her family updating them. She denies any chest pain or shortness of breath denies any abdominal pain. Wants to try to eat. PAST MEDICAL HISTORY: Endorses none PAST SURGICAL HISTORY: CHOLECYSTECTOMY 2007 TUBAL LIGATION 2007 LEFT BREAST BIOPSY (CHEVY) 07/19/2019 LYMPH NODE BIOPSY- RIGHT AXILLA, NEGATIVE 08/2019 SOCIAL HISTORY: Alcohol use socially Tobacco use 1 PPD. Denies illicit drug use Works at [employer] FAMILY HISTORY: NO KNOWN FAM HX OF CANCER, DM OR HEART DISEASE. ALLERGIES: Please see below. REVIEW OF SYSTEMS: 10 point review of systems complete all negative otherwise stated in HPI HOME MEDICATIONS: Please see below. PHYSICAL EXAMINATION: Constitutional: Awake and alert, in no apparent distress ENT: Sclera are clear. Mucosa is moist. Respiratory: Lungs CTA bilaterally. No respiratory distress. Cardiovascular: RRR S1 and S2 are normal, no murmur Gastrointestinal: Abdomen is soft, non distended, non tender Musculoskeletal: No lower extremity edema Neurologic: No focal neurological deficit. Mental Status: A&O x3, normal affect Skin: Warm, dry. Dressing over bilateral chest. LABORATORY DATA: See below. IMAGING: See chart MICROBIOLOGY: Please see below. ASSESSMENT/PLAN Patient admitted for observation post bilateral mastectomy, reconstruction with placement of tissue expanders. # S/p bilateral mastectomy: management per surgery. Pain control. CLD advance as tolerated. Perioperative Cefazolin per surgery. # Smoker: Counseled to quit. nicotine patch refused # DVT prophylaxis: Heparin A Yousef Hospitalist Vital Signs Vital Signs Date Time Temp Pulse Resp B/P (MAP) Pulse Ox O2 Delivery O2 Flow Rate FiO2 03/31/20 19:07 65 16 116/58 (77) 94 Nasal Cannula 2 03/31/20 18:54 97.4 Home Medications Scheduled Cholecalciferol (Vitamin D3) (Vitamin D3) 1,000 Unit Tablet, 1,000 UNITS PO DAILY Naproxen (Naprosyn) 500 Mg Tablet, 500 MG PO BID for pain Allergies Coded Allergies: No Known Allergies (Verified Allergy, Unknown, 03/18/20) A-FIB/CHADSVASC A-FIB History Current/History of A-Fib/PAF?: No SCARLETT RICH MD Mar 31, 2020 19:27
[2020-03-31 23:15] VITALS: BP 133/74
[2020-04-01 00:15] VITALS: BP 134/73
[2020-04-01 02:00] VITALS: BP 131/69
[2020-04-01] MEDS: oxyCODONE 5MG TAB PO PRN ×3 (02:33→13:04)
[2020-04-01] MEDS: ceFAZolin SOD 2 GM in IV 1 EA IV SCH ×2 (04:06→12:17)
[2020-04-01 04:20] VITALS: BP 113/50
[2020-04-01] MEDS: NS 1,000 ML IV SCH (08:10)
[2020-04-01] MEDS ORDERED: VITAMIN D 1,000 INTERNATIONAL UNITS TABLET PO SCH (09:00)
[2020-04-01] MEDS ORDERED: HEPARIN SOD (PORCINE) 5000UNITS/ML 1ML VIAL/SYRINGE SQ SCH (09:00)
--- NOTE | 2020-04-01 09:06 | REP ---
INDICATION: BILATERAL SENTINEL LYMPHNODE BIOPSY, BILATERAL STEREOPLOTTER OPERATOR PLAC. COMPARISON: Mammograms 07/11/2019, 07/18/2019, MRI 03/17/2020, ultrasound 12/24/2019. TECHNIQUE: A specimen radiograph is performed. FINDINGS: A metallic clip is seen near the margin of the specimen. IMPRESSION: Metallic clip seen near the margin of the specimen. RECOMMENDATION: Clinical follow-up. <Electronically signed by August Harp > 04/01/20 0902
--- NOTE | 2020-04-01 12:02 | IPNPDOC ---
Subjective General Date Seen: Apr 01, 2020 Subject Chief Complaint/History The patient is a 45-year-old female admitted with a reason for visit of Left Breast Cancer. Patient is s/p bilateral mastectomy with SLNB bilaterally, with immediate post mastectomy reconstruction with tissue expanders placement POD 1. Patient is doing well this morning. Pain controlled. Ambulating. Moving arms normally. Current Medications Current Medications Current Medications Medications (Trade) Dose Ordered Sig/Elbert Route PRN Reason Start Time Stop Time Status Last Admin Dose Admin Acetaminophen (Tylenol Tab) 650 mg Q6H PRN PO MILD PAIN (PS 1-4) 03/31/20 18:45 Cefazolin Sodium/ Dextrose 2 gm/IV Miscellaneous Supplies 50 ml @ 75 mls/hr Q8H IV 03/31/20 20:00 04/01/20 12:39 04/01/20 04:06 Fentanyl Citrate (Sublimaze) 25 mcg Q5MP PRN IV PAIN LEVEL 5-10 03/31/20 18:45 03/31/20 19:45 DC Heparin Sodium (Porcine) (Heparin) 5,000 units Q12H SQ 04/01/20 09:00 04/01/20 08:10 Hydromorphone HCl (Dilaudid) 0.4 mg Q5MP PRN IV PAIN LEVEL 4-7 03/31/20 18:45 03/31/20 19:45 DC Lactated Ringer's 1,000 ml @ 100 mls/hr Q10H IV 03/31/20 18:45 03/31/20 19:45 DC Metoclopramide HCl (REGLAN INJection) 10 mg Q6HP PRN IV NAUSEA OR VOMITING 03/31/20 18:45 03/31/20 19:45 DC Morphine Sulfate (Morphine Sulfate Inj) 2 mg Q2H PRN IV BREAKTHROUGH PAIN 03/31/20 18:45 Ondansetron HCl (ZOFRAN INJection) 4 mg Q4H PRN IV NAUSEA OR VOMITING 03/31/20 18:45 Ondansetron HCl (ZOFRAN INJection) 4 mg Q4HP PRN IV NAUSEA OR VOMITING 03/31/20 18:45 03/31/20 19:45 DC 03/31/20 18:54 Oxycodone HCl (Roxicodone, Oxyir) 5 mg ASDIRECTED PRN PO PAIN LEVEL 1-4 03/31/20 18:45 03/31/20 19:45 DC 03/31/20 19:30 Oxycodone HCl (Roxicodone, Oxyir) 5 mg Q4HP PRN PO PAIN LEVEL 5-7 03/31/20 18:45 Oxycodone HCl (Roxicodone, Oxyir) 10 mg Q4HP PRN PO SEVERE PAIN (PS 8-10) 03/31/20 18:45 04/01/20 08:09 Promethazine HCl (PHENERGAN INJection) 12.5 mg ONCE PRN IV NAUSEA OR VOMITING 03/31/20 18:45 03/31/20 19:45 DC Sodium Chloride 1,000 ml @ 70 mls/hr [id number] IV 03/31/20 18:33 04/01/20 11:37 DC 04/01/20 08:10 Vitamin D (Vitamin D) 1,000 units DAILY PO 04/01/20 09:00 04/01/20 08:10 Allergies Coded Allergies: No Known Allergies (Verified Allergy, Unknown, 03/18/20) Objective Physical Examination Examination GENERAL APPEARANCE:Patient seen, laying in bed, awake, alert, and oriented. Comfortable, in no acute distress. SKIN: Warm and moist. BREAST: Right and left soft, non-tender incisions intact. INSA drains: 55/45 cc/24 hr. Expected mild post op ecchymosis, no expanding hematoma. LUNGS: Clear to auscultation bilaterally. No wheezing appreciated. HEART: No chest wall abnormalities. Regular rate and rhythm with no murmurs appreciated. ABDOMEN: Abdomen is soft, non-tender, non-distended. EXTREMITIES: No edema identified. No calf tenderness. Vital Signs Vital Signs Date Time Temp Pulse Resp B/P (MAP) Pulse Ox O2 Delivery O2 Flow Rate FiO2 04/01/20 08:39 16 04/01/20 04:20 98.8 85 113/50 (71) 94 Room Air 03/31/20 19:45 2.0 I&Os I&O- Last 24 Hours up to 6 AM0 04/01/20 06:00 Intake Total 3650 ml Output Total 986 ml Balance 2664 ml Impression Left breast cancer. S/p bilateral mastectomy with SLNB bilaterally, with immediate post mastectomy reconstruction with tissue expanders placement POD 1 Feeling well. Stable for discharge. Dressing changed. Keep support bra on. Monitor and record NISA drains output at home. Pain meds F/up plastic surgery Monday02/01/21 11:30 am call the office if any questions [phone] Plan / VTE VTE Prophylaxis Ordered?: Yes OTTO MIRANDA DO Apr 01, 2020 12:02
--- NOTE | 2020-04-01 13:31 | RO ---
OPERATIVE NOTE DATE OF OPERATION: 03/31/2020 PREOPERATIVE DIAGNOSIS: Bilateral breast acquired deformity, status post bilateral mastectomy. POSTOPERATIVE DIAGNOSIS: Bilateral breast acquired deformity, status post bilateral mastectomy. PROCEDURE: Bilateral immediate post-mastectomy reconstruction with placement of tissue expanders. ATTENDING SURGEON: Lissa Talamantes DO, FACOS SINGER SONGWRITER: Leticia Samuels DO ANESTHESIA: General. SPECIMENS: None. ESTIMATED BLOOD LOSS: 25 mL REPLACEMENT: No replacements. DRAINS: Ron round 15 Kenyan x4. COMPLICATIONS: None. PROCEDURE: This is a combination procedure with Dr. Samuels. Mastectomy portion of the procedure will be dictated by her separately. The patient was marked preoperatively in the holding area by vt for a Malik pattern mastectomy and then informed consent was confirmed. She was brought into the operating room and then mastectomy part was completed under general anesthesia. After that portion of the procedure is completed, the patient was reprepped and redraped and we started our procedure on the left side which was a smaller side. The area was irrigated by Dr. Samuels with bacitracin irrigation solution and we started raising a subpectoral flap, creating subpectoral pocket for the hardening machine operator helper using electrocautery under direct vision with lighted retractor. The pectoralis major muscle was elevated and hemostasis was obtained using electrocautery. The serratus anterior muscle was elevated laterally to complete the lateral inferior portion of the pocket. Then it was irrigated by Dr. Samuels again and she also did a block with Exparel 6 mL through the pectoralis muscle. During that time, I had taken the hardening machine operator helper on the back table and prepped it for the insertion of the 450 mL [place] smooth, moderate profile hardening machine operator helper. All the air was expelled. It was irrigated with bacitracin irrigation solution and then we introduced the hardening machine operator helper into the subpectoral pocket and it is a good fit. We then closed the pocket with interrupted 2-0 Vicryl sutures and then two 15 Kenyan round drains were placed through the separate stab incision, one for the axilla portion and one for the breast portion and then the skin envelope was closed according to Malik pattern. The vertical limb was 7 cm. Slight excess tissue was measured inferiorly and de-epithelialized and used as an inferior breast sling and the horizontal incision was closed with 3-0 Monocryl sutures as well. Also, we have expanded the left side to 150 mL with normal saline injectable. Then we turned our attention to the right side. That side is larger, about 200 gm larger than the left. We created also the same subpectoral pocket under direct vision with the lighted retractor and the anterior serratus muscle was also elevated to provide coverage for inferolateral portion of the pocket. While Dr. Samuels was irrigating the wound with bacitracin irrigation solution and giving it a block with Exparel, a total of 6 mL, I have taken the hardening machine operator helper on the back table and had it prepared for the insertion by expelling all the air and irrigating with bacitracin irrigation solution. The hardening machine operator helper was 450 mL Brillion, smooth, moderate profile. Then we introduced it into the pocket. It had good fit. One suture was used for the inferior loop to orient and keep it aligned using 3-0 Vicryl sutures through the loop on both sides actually we have used it. Then the pocket was closed with 2-0 Vicryl sutures interrupted fashion and two 15 round Ron drains were introduced through a separate stab incision and the pocket was then closed with interrupted Monocryl sutures. The vertical limb was 7 cm. Excellent tissue was then measured and then de-epithelialized and used for inferior sling to support our implant inferiorly and the horizontal scar was closed with interrupted 3-0 Monocryl sutures as well. Prineo dressing was applied to the vertical and horizontal incisions bilaterally as well as a bulky dressing and a support bra. The patient was extubated in the operating room without any difficulties and transferred to the recovery room in stable condition.
--- NOTE | 2020-04-01 14:21 | RO ---
OPERATIVE NOTE DATE OF OPERATION: 03/31/2020 PREOPERATIVE DIAGNOSIS: Bilateral breast acquired deformity status post bilateral mastectomy. POSTOPERATIVE DIAGNOSIS: Bilateral breast acquired deformity status post bilateral mastectomy. PROCEDURE: Bilateral immediate post-mastectomy reconstruction with placement of tissue expanders. ATTENDING SURGEON: Lissa Talamantes DO CLEANER TOUCH UP WORKER: Dr. Leticia Samuels ANESTHESIA: General. SPECIMENS: None on this part of the procedure. ESTIMATED BLOOD LOSS: 25 mL. BLOOD REPLACEMENT: None. DRAINS: Ron round 15-Wolof x4. COMPLICATIONS: None. PROCEDURE: This is a 45-year-old female who was diagnosed with left breast cancer. She is scheduled for bilateral mastectomy with bilateral sentinel lymph nodes biopsies. Also, the patient will be having her immediate post-mastectomy immediate reconstruction. This is a combination procedure with Dr. Samuels and the patient is ready to proceed today with surgery. Informed consent was obtained the morning of. The patient was marked in the upright position. Then, the mastectomy portion of the procedure was done by Dr. Samuels and will be dictated separately. After bilateral mastectomy was completed, the patient was reprepped and redraped. Additional dose of antibiotics was given. We started our procedure on the left side. The left side is the smaller side. She was preoperatively marked for Cai pattern mastectomy. We started our procedure by irrigating INCOMPLETE/verified/ml.
--- NOTE | 2020-04-01 15:43 | DS.PDOC ---
Discharge Summary General Date of Admission 03/31/19 Date of Discharge 04/01/19 Discharge Summary PROCEDURES PERFORMED DURING STAY: S/p bilateral mastectomy with SLNB bilaterally, with immediate post mastectomy reconstruction with tissue expanders placement DISCHARGE DIAGNOSES: Left breast cancer S/p bilateral mastectomy with SLNB bilaterally, with immediate post mastectomy reconstruction with tissue expanders placement COMPLICATIONS/CHIEF COMPLAINT: Left Breast Cancer. HOSPITAL COURSE: 45 year old female admitted for overnight admission after bilateral mastectomy. No issues overnight. Pain controlled. Cleared by plastic surgery for discharge today. Left breast cancer. S/p bilateral mastectomy with SLNB bilaterally, with immediate post mastectomy reconstruction with tissue expanders placement POD 1 Feeling well. follow Plastic surgery directions for pain meds and activity, dessing changes, NISA drain management. F/up plastic surgery Monday02/01/21 11:30 am DISCHARGE MEDICATIONS: Please see below. ALLERGIES: Please see below. PHYSICAL EXAMINATION ON DISCHARGE: VITAL SIGNS: Please see below. Constitutional: Awake and alert, in no apparent distress ENT: Sclera are clear. Mucosa is moist. Respiratory: Lungs CTA bilaterally. No respiratory distress. Cardiovascular: RRR S1 and S2 are normal, no murmur Gastrointestinal: Abdomen is soft, non distended, non tender Musculoskeletal: No lower extremity edema Neurologic: No focal neurological deficit. Mental Status: A&O x3, normal affect Skin: Warm, dry. Dressing over bilateral chest. LABORATORY DATA: Please see below. ACTIVITY: [As tolerated]. DIET: Regular DISCHARGE PLAN: Home DISCHARGE INSTRUCTIONS: Follow up Dr Talamantes as instructed. DISCHARGE CONDITION: [Stable]. TIME SPENT ON DISCHARGE: 31 minutes. Vital Signs/I&Os Vital Signs Date Time Temp Pulse Resp B/P (MAP) Pulse Ox O2 Delivery O2 Flow Rate FiO2 04/01/20 13:34 16 04/01/20 04:20 98.8 85 113/50 (71) 94 Room Air 03/31/20 19:45 2.0 I&O- Last 24 Hours up to 6 AM 04/01/20 06:59 Intake Total 4490 ml Output Total 986 ml Balance 3504 ml Discharge Medications Scheduled Cholecalciferol (Vitamin D3) (Vitamin D3) 1,000 Unit Tablet, 1,000 UNITS PO DAILY Allergies Coded Allergies: No Known Allergies (Verified Allergy, Unknown, 03/18/20) CARLOS LUNA MD Apr 01, 2020 15:43
[2020-04-01] MEDS ORDERED: OXYC1TAB23 PO (16:39)
[2020-04-04] MEDS ORDERED: OXYC1TAB23 PO (10:44)
--- NOTE | 2020-04-04 18:37 | ROOPDOC ---
[facility] Report Of Operation Report of Operation DATE OF PROCEDURE: 03/31/20 PREPROCEDURE DIAGNOSES: Left breast cancer and numerous suspicious right breast masses POSTPROCEDURE DIAGNOSES: same PROCEDURE: Bilateral skin sparing mastectomy with left breast frozen section of tissue at the site of dimpling, bilateral sentinel lymph node biopsy with bila teral blue dye intraop injections, left axillary lymph node frozen section, followed by imediate stage 1 reconstruction with tissue obgyn nurse placement, bilateral pectoralis and seratus muscle block, right chest wall port-a-cath removal SURGEON: Germania Samuels WASHCOAT WIPER : Payton Talamantes ANESTHESIA: general ESTIMATED BLOOD LOSS: Approximately 175 mL. COMPLICATIONS: none REMARKS: frozen section of the left breast tissue at the site of dimpling was negative for visible cancer, left axillary sentinel lymph node frozen section was negative for visible cancer cells, only one sentinel lymph node was identified in the left and right axilla despite dual tracer, Each identified lymph node was hot and blue. DESCRIPTION OF PROCEDURE: INDICATIONS: Ms. Yane Payan is a 45 year old lady who presented to clinic 07/18/19 with left breast lump with skin dimpling x 1 year ( patient did not seek medical attention prior to evaluate this finding) and right breast painful lump x 1 month. Diagnostic imaging was done. US guided biopsy of the left breast mass was done by me and pathology came back as ILC grade 2-3, ER100% NH 100% Her2 neg. In the right breast on clinical exam and on imaging , numerous (4) masses were found in the breast tissue and one mass right under the skin in the inferior portion of breast. Due to numerous targets, US bx was deferred. MRI of the breast was done and showed large and extensive left breast mass with possible subdermal tissue involvement at the site of lateral left breast d impling. There were no abnormal left axillary lymph nodes seen. In the right breast, there were numerous masses identified ( the one at the inferior subdermal area was not seen and the one at 2:00 was not clearly seen), with suspicious lesion in the lateral aspect of the breast and suspicious Right axillary lymph node. Genetic testing was done and was negative for clinically significant mutations. I had extensive discussion with Ms. Payan regarding surgery and need to do 5 different right breast biopsies and right axillary lymph node biopsy if she wishes to keep right breast. I recommended left breast mastectomy due to extent of disease. Patient opted for b/l skin sparing mastectomy hence I felt no need to pursue right breast biopsies. Patient had Right axillary lymph node biopsy done with Radiology with clip placement, however it is possible that clip did not deploy, as Hydromark clip was not seen on Sono of right axilla post bx. Pathology of the right axillary lymph node contained benign lymphatic tissue. Due to moderate suspicion that one of the right breast masses will come back as malignant I recommended also bilateral sentinel lymph node biopsy at the time of surgery. Since the patient had significant dimpling of the tissue of the lateral left breast with possible subdermal tissue involvement per MRI findings, in consultation with medical oncology, decision was made to place patient on neoadjuvant chemotherapy to allow for possible treatment of that area and better cosmetic results at the time of surgery. Patient completed neoadjuvant therapy and her post chemotherapy MRI showed marked improvement of left breast cancer although no complete resolution. The right lateral breast mass also was not visible on the MRI any longer. Risks and possible complications of surgical procedure including bleeding, infection and injury to surrounding structures were explained to the patient and she wished to proceed. I also discussed with the patient that I will be using a blue dye in the operating room to aid in localization of sentinel lymph nodes. I informed patient that in case the frozen section of the left axilla comes back positive for cancer, I will need to do full left axillary lymph node dissection and that carries higher risks and complications including nerve damage and lymphedema. I informed patient that I will be taking a small amount of tissue from her left breast at the site of dimpling and send that for frozen section as well. If this tissue is involved with cancer, skin in this area will have to be excised and less appealing cosmetic results may result. I also counseled patient that the frozen section is 90% adequate and that there is 10% chance that the results of final pathology will differ, warranting additional surgical intervention. Consent was signed. Subcutaneous heparin 5000 units was given to patient in the preop area. Lymphoscintigraphy was reviewed preoperatively and the tracer was found in the bilateral axillas. Dr Talamantes marked patient preoperatively. DETAILS: Patient was taken to the operating room and placed supine on the operating room table. Pillow was placed under her knees. Foam was placed under her heels. A s ign in was called stating patients name, date of and the procedure to be done. Preoperative antibiotics were infused. Smooth induction of general anesthesia was done. Patients hands were extended on arm rests. Care was taken not to over extend patients arms. Alonso catheter was placed. Pillow was placed under the knees and a foam was placed under the hills. Sequential compression devices were placed and assured to function correctly. Patients both breast and axillas were prepped and draped in the usual fashion. Neoprobe was used to keily the site of maximal signal in the axillas. The Left breast Hydromark clip was identified with the ultrasound and location was marked on the Skin. Left breast tissue dimpling was marked with the marker as well. Right breast palpable masses and sono findings were also marked on the skin with the marker. Appropriate time out was done and patients name, date of , and the procedure to be done were confirmed. Procedure was started on the left side with left breast mastectomy. Blue dye was injected into the periareolar tissue and breast was massaged toward the axilla for a few minutes. Next, a vertical incision incorporating nipple areolar complex was made with scalpel number 15 and extended toward the inframammary fold in preparation for the Malik Pattern mastectomy approach. Left lateral breast dimpling site, previously marked with the marked was now localized with the 3-0 Proline stitch, tied and left in place until final pathology results are available. Subcutaneous flaps were developed using electrocautery dissection. Dissection was carried toward the inframammary fold inferiorly, toward sternum medially, toward inferior aspect of clavicle superiorly and toward the axilla laterally. Very careful dissection was done at the site of tissue dimpling. About 2x2 cm tissue was excised from the area immediately under the dimpled skin, marking the area closest to the skin with Prolene stitch, and it was sent to pathology for frozen section evaluation. Frozen section was reported to be negative for visible cancer cells hence plan to progress with Malik Pattern mastectomy continues. Breast tissue in the specimen deep to the area taken for the frozen section was also marked with the Prolene stitch. Left breast was dissected from the muscle posteriorly and pectoralis fascia was taken with the specimen. The dissection was carried all the way to the [facility] making sure that axilla is not entered prematurely. Breast specimen was marked for orientation with short single stitch marking superior edge of mastectomy and long single stitch marking lateral edge of mastectomy. The specimen was weighted and weight of 812 grams was reported. The specimen was then placed in formaldehyde, and passed to pathology. Mastectomy cavity was irrigated. Adequate hemostasis was assured. Next, our attention was turned toward the left axilla which was accessed from the mastectomy site. Dr Talamantes was able to assist with this portion of procedure. Clavipectoral fascia was opened over the site of maximum Neoprobe signal. Moderate amount of sclerosed tissue was identified in the axilla consistent with post chemotherapy treatment tissue. Area of high signal was identified at the lateral border of the pectoralis major muscle in deep axilla. [place] lymph node was identified and 10 second ex-[place] [id number]. This node was blue as well. This node was sent to pathology for frozen section. Pathology called the report stating that there are no visible tumor cells identified. Decision was made not to pursue axillary dissection at this time. We looked for additional blue, palpable or lymph nodes but no additional lymph nodes were identified despite extensive search. 10 second count of the background was 18. The few small pieces of tissue removed during search for sentinel lymph node were sent separately as left axillary content. Doctor Del Rio assistance with identification of sentinel lymph nodes was critical to avoid injury to surrounding nerves. The axilla was irrigated and hemostasis was achieved. Two 15 [place] Ron drains were placed into the mastectomy cavity and into left axillary and secured at the skin with stitches. Left pectoral and serratus plane blocks were done with Exparel. Our attention was turned to the right side at this time. The previously used surgical instruments were placed on the back table since we were going from cancer to noncancer site. Gloves were changes and clean drape covering the previous surgical site was placed. Sponge and instrument count was correct. New instrument set up was completed. At this time, blue due was injected into periareolar location of the right breast and breast was massaged for a few minutes toward the axilla. A vertical incision incorporating nipple areolar complex was made with scalpel number 15 and extended toward the inframammary fold in preparation for the Malik Pattern mastectomy approach. The palpable mass in the inferior portion of the breast was marked with double stich and was incorporated into the excised skin area. Subcutaneous flaps were developed using electrocautery dissection. Dissection was carried toward the inframammary fold inferiorly, toward sternum medially, toward inferior aspect of clavicle superiorly and toward the axilla laterally. Doctor Paleys assistance was critical in allowing fast progression of the case and decreasing anesthesia time. Sites of the palpable 6:00 and 2:00 masses were marked with double stitches on the mastectomy specimen. Upon dissection upper pole of the breast, right chest port-a-cath was identified and surrounding subcutaneous tissue was dissected away from the port. Patient was placed in the Trendelenburg position and the port-a-cath was removed. Port-a-cath was inspected intaop and no missing pieces of catheter were identified. The manual pressure was held at the venous entrance site of the catheter in the lower right neck and subclavicular region. #-0 Vicryl stich in the figure of 8 was placed over the catheter track. No back bleeding was observed. Right chest wall port-a-cath was sent to pathology for gross evaluation. Next, right breast tissue was dissected from the muscle posteriorly and pectoralis fascia was taken with the specimen. The dissection was carried all the way to the [facility] making sure that axilla is not entered arely turely. Upon dissection of the right upper outer lateral breast tissue, close to the axilla, another palpable mass was noted. Attempt to dissect the area for additional evaluation was made however it was noted very dense and it was just marked with a double stitch. Intraop US of this mass was done to assure it is not a lymph node. No lymph nodes were seen on US in this area. The tissue seen on sono was heterogenous with some irregularity. Upon completing the dissection, right breast specimen was marked for orientation with short single stitch marking superior edge of mastectomy and long single stitch marking lateral edge of mastectomy. The specimen was weighted and weight of 1015 grams was reported. The specimen was then placed in formaldehyde, and passed to pathology. Mastectomy cavity was irrigated. Doctor Paleys assistance was critical in achieving adequate hemostasis and progressing the case safely. Next, our attention was turned toward the right axilla which was accessed from the mastectomy site. Clavipectoral fascia was opened over the site of maximum Neoprobe signal. Moderate amount of sclerosed tissue was identified in the axilla consistent with post chemotherapy treatment tissue. Area of high signal was identified in the mid axillary region. [place] lymph node was identified and 10 second ex-vivo count was 7563. Specimen was labeled appropriately and sent to pathology. NO frozen section was pursued on this site as there is no confirmed cancer. We looked for additional blue, palpable or lymph nodes but no additional lymph nodes were identified despite extensive search. 10 second count of the background was 24. Doctor Del Rio assistance with identification of sentinel lymph nodes was again critical to avoid injury to surrounding nerves. The axilla was irrigated and hemostasis was achieved. Two 15 [place] Ron drains were placed into the mastectomy cavity and right axillary region and secured at the skin with stitches. Right pectoral and serratus plane blocks were done with Exparel. The bilateral skin sparing mastectomy and bilateral sentinel lymph node biopsy portion of the procedure was completed. Instrument and sponge count was correct. The chest was re-prepped and re-draped for Dr Del Rio part of procedure involving tissue obgyn nurse placement. Please refer to Dr. Del Rio note for details of this part of the procedure. I assisted with the reconstruction part of the procedure as well and stayed scrubbed throughout entire procedure. Due to bilateral additional skin excision done during Dr Del Rio portion of procedure, this skin was sent to pathology as separate specimens right excess skin and left excess skin Final instrument and sponge count was correct. Dermabond with Prineo dressing was placed. Patient emerged from general anesthesia without any problems. Patient tolerated procedure well and was taken to recovery unit in stable condition. Chest XR done in postop did not show pneumothorax. GERMANIA SAMUELS DO Apr 04, 2020 18:37
[2020-04-09] MEDS ORDERED: OXYC1TAB23 PO (15:18)
== END 2020-04-01 15:40 | disposition home or self-care (01) ==
LOC: M SDC 06:36 → M MS5PR 06:37 → M SDC 19:30 → M MS5PR 19:30 → M SDC 04-01 15:40
PROVIDERS: ADMIT Family Medicine; ATTEND Family Medicine
DX: C50.912 Malignant neoplasm of unspecified site of left female breast (principal); F17.218 Nicotine dependence, cigarettes, with other nicotine-induced disorders; Z17.0 Estrogen receptor positive status [ER+]
CPT/HCPCS: 19303; 19357; 36415; 38525; 64450; 71045; 78195; 86850; 86900; 86901; 88300; 88302; 88304; 88305; 88307; 88309; 88342; 96361; 96365; 96366; A9541; C1789; C9290; J0131; J0690; J1100; J1644; J1885; J2250; J2370; J2405; J2765; J3010; Q9968

== ENCOUNTER → 2020-09-14 | Outpatient (CLI) | payer OTHER ==
[~2020-09-14] MED LIST changes: -DOXY100C37 PO; +DOXY1CAP62 PO; -HEPARIN SOD (PORCINE) 5000UNITS/ML 1ML VIAL/SYRINGE SQ ONE; -LR 1,000 ML IV ONE; +OXYC1TAB23 PO; +TAMO20TA8 PO; +VITA-243 PO; +ZINC1TAB2 PO; -ceFAZolin SOD 2 GM in IV 1 EA IV ONE
--- NOTE | 2020-09-14 08:56 | REP ---
INDICATION: JEANIE PULMONARY NODULE COMPARISON: None. TECHNIQUE: Standard helical technique without the administration of intravenous contrast. FINDINGS: The mediastinum and pulmonary suzanne are stable. There is no evidence of a mass or adenopathy. There are no pleural or pericardial effusions. The imaged upper abdomen and imaged osseous structures are stable. Evaluation of the lung soliman shows no new abnormal nodules, masses, or opacities. IMPRESSION: Stable lung rads category 2 CT examination of the chest. <Electronically signed by Bairon Rocha > 09/14/20 [id number]
== END ==
LOC: M RAD 07:47
PROVIDERS: ATTEND Internal Medicine Pulmonary Disease
DX: R91.1 Solitary pulmonary nodule (principal)

== ENCOUNTER → 2020-12-15 | Outpatient (CLI) | payer OTHER ==
[2020-12-15 17:59] LABS: HEMATOCRIT 39.5 % (36.0-47.0); HEMOGLOBIN 13.6 g/dl (12.0-15.5); MEAN CORPUSCULAR HEMOGLOBIN 32.1 pg (27.0-33.0); MEAN CORPUSCULAR HGB CONC 34.4 g/dl (32.0-36.5); MEAN CORPUSCULAR VOLUME 93.2 fl (80.0-96.0); PLATELET COUNT, AUTOMATED 224 10^3/uL (150-450); RED BLOOD COUNT 4.24 10^6/uL (4.00-5.40); WHITE BLOOD COUNT 6.7 10^3/uL (4.0-10.0)
== END ==
LOC: M PLALAB 14:32
PROVIDERS: ATTEND Family Medicine
DX: Z01.818 Encounter for other preprocedural examination (principal)

== ENCOUNTER → 2020-12-31 | Outpatient (CLI) | payer OTHER | LOC: M LABSMTC 10:45 | PROVIDERS: ATTEND Anesthesiology | DX: Z01.812 Encounter for preprocedural laboratory examination (principal); Z20.822 Contact with and (suspected) exposure to COVID-19 ==

== ENCOUNTER 2021-01-05 09:16 | Day surgery (SDC) | payer OTHER ==
[~2021-01-05] VITALS: Ht 160 cm; Wt 77.6 kg
[~2021-01-05 09:16] MED LIST changes: +DOXY-443 PO; -DOXY1CAP62 PO; +LIDOCAINE 1% MDV 20ML VIAL SQ PRN; +LR 1,000 ML IV ONE; +ceFAZolin SOD 2 GM in IV 1 EA IV ONE
[2021-01-05] MEDS ORDERED: ONDANSETRON 4MG/2ML VIAL As Ordered ONE (09:47)
[2021-01-05] MEDS ORDERED: propofoL 200 MG/20 ML VIAL As Ordered ONE ×2 (09:47→12:09)
[2021-01-05] MEDS ORDERED: dexameTHASONE 4 MG/ML 1ML VIAL (J1100 PER 1MG) As Ordered ONE (09:47)
[2021-01-05] MEDS ORDERED: ROCURONIUM BROMIDE 50 MG/5 ML VIAL As Ordered ONE (09:47)
[2021-01-05] MEDS ORDERED: LIDOCAINE 2% 100MG/5ML SDV (FOR ANES.) As Ordered ONE (09:47)
[2021-01-05] MEDS ORDERED: SUGAMMADEX SODIUM 500 MG/5 ML VIAL (BRIDION) As Ordered ONE (09:47)
[2021-01-05] MEDS ORDERED: fentaNYL 250 MCG/5 ML INJECTION (J3010) As Ordered ONE (09:48)
[2021-01-05] MEDS ORDERED: MIDAZOLAM INJ 2MG/2ML VIAL (J2250 PER 1MG) As Ordered ONE (09:48)
[2021-01-05] MEDS ORDERED: GENTAMICIN SULF 80MG/2ML VIAL As Ordered ONE (11:04)
[2021-01-05] MEDS ORDERED: BUPIVACAINE LIPOSOME/PF 1.3% 20ML VIAL (13.3MG/ML)(EXPAREL)(C9290 PER1MG) As Ordered ONE (11:04)
[2021-01-05] MEDS ORDERED: ceFAZolin 1GM VIAL (J0690 PER 500MG) As Ordered ONE (11:47)
[2021-01-05] MEDS ORDERED: ACETAMINOPHEN 1000MG 100ML IV BTL (OFIRMEV) (J0131 PER 10MG) As Ordered ONE (12:20)
[2021-01-05] MEDS ORDERED: ePHEDrine SULFATE 25 MG/5 ML(5MG/ML) SYRINGE As Ordered ONE (13:04)
[2021-01-05] MEDS ORDERED: PHENYLephrine 500MCG 5ML (100MCG/ML) SYRINGE As Ordered ONE (13:04)
--- NOTE | 2021-01-05 14:06 | POST-OPPD ---
Postoperative Procedure Note Date Of Procedure: Jan 05, 2021 PREOPERATIVE DIAGNOSIS: Bilateral absence of breast and nipple, s/p bilateral mastectomy. POSTOPERATIVE DIAGNOSIS: same PROCEDURE: Bilateral breast reconstruction with open capsulotomy and exchange of expanders to permanent implants. SURGEON: Dr Miranda NATURAL GAS ENGINEER: none ANESTHESIA: general ESTIMATED BLOOD LOSS: 10 cc FINDINGS: Right and left breast expanders SPECIMENS: right and left expanders. COMPLICATIONS: none REPLACED: none DRAINS: none IMPLANTS: [place] 645 cc round smooth gel Xtra moderate plus profile. POSTOPERATIVE CONDITION: stable OTTO MIRANDA DO Jan 05, 2021 14:06
--- NOTE | 2021-01-05 14:06 | ROOPDOC ---
[facility] Report Of Operation Report of Operation DATE OF PROCEDURE: 01/05/21 PREOPERATIVE DIAGNOSIS: Bilateral absence of breast and nipple, s/p bilateral mastectomy. POSTOPERATIVE DIAGNOSIS: same PROCEDURE: Bilateral breast reconstruction with open capsulotomy and exchange of expanders to permanent implants. SURGEON: Dr Miranda RUBBER INSULATOR: none ANESTHESIA: general ESTIMATED BLOOD LOSS: 10 cc FINDINGS: Right and left breast expanders SPECIMENS: right and left expanders. COMPLICATIONS: none REPLACED: none DRAINS: none IMPLANTS: [place] 645 cc round smooth gel Xtra moderate plus profile. POSTOPERATIVE CONDITION: stable DESCRIPTION OF PROCEDURE: Procedure: This is a 45-year-old female status post bilateral mastectomies with immediate reconstruction with subpectoral tissue expanders. Patient is ready for second stage of procedure for reconstruction today with planned exchange of expanders to permanent implants with open capsulotomy. Risk, benefits and alternatives of the procedure discussed with the patient in detail and she is ready to proceed. The day of surgery. Informed consent was confirmed and then patient was brought into the operating room, placed in supine position. General anesthesia was induced. She was given pr eoperative antibiotics, heparin and sequential stockings were placed in the lower calves. She is prepped and draped in the usual sterile fashion. We started our procedure on the right side. Inferior horizontal incision was outlined, including the old scar which was excised using 10 blade. Patient mastectomy was done along the Malik pattern. Sharp dissection with electrocautery carried out until the pectoralis muscle fibers and encountered and small flap created undermining superiorly. 450 mL national account executive was identified completely intact. It was deflated and removed without difficulties. Pocket was evaluated under direct vision with lighted retractor and open capsulotomy performed using electrocautery. Hemostasis was obtained using electrocautery as well. Pocket was reexamined than the measured, there is excess tissue extending to the lateral chest which was plicated with 20 V-Loc Monocryl suture. 605 mL sizer was introduced into the pocket. It seems that a large implant would be beneficial. Therefore, we opted for the second proposed size 645 mL extra fill [place] moderate plus profile implant. The pocket was irrigated with gentamicin irrigation solution and checked for hemostasis again. 6 cc Exparel was infiltrated in the pectoralis muscle. Implant was introduced at the table in sterile conditions using Hall's funnel. It appears a good fit. The pocket was closed in layers with interrupted 3-0 Vicryl and 3-0 Monocryl sutures. Also, 3-0 Vicryl Monocryl sutures for the skin. Then we turn our attention to the left side. Pocket was evaluated under direct vision with lighted retractor and open capsulotomy performed using electrocaut kelechi. Hemostasis was obtained using electrocautery as well. Pocket was reexamined than the measured, there is excess tissue extending to the lateral chest which was plicated with 20 V-Loc Monocryl suture. 605 mL sizer was introduced into the pocket. It seems that a large implant would be beneficial. Therefore, we opted for the second proposed size 645 mL extra fill Butler moderate plus profile implant. The pocket was irrigated with gentamicin irrigation solution and checked for hemostasis again. 6 cc Exparel was infiltrated in the pectoralis muscle. Implant was introduced at the table in sterile conditions using Hall's funnel. It appears a good fit. The pocket was closed in layers with interrupted 3-0 Vicryl and 3-0 Monocryl sutures. Also, 3-0 Vicryl Monocryl sutures for the skin. Good symmetry achieved between the breasts. Prinio dressing applied to the incision followed by a bulky dressing and a surgical bra. Patient extubated without any difficulties and transferred to recovery room in stable condition. OTTO MIRANDA DO Jan 05, 2021 14:06
[2021-01-05] MEDS ORDERED: TRAM50TA2 PO (14:09)
[2021-01-05] MEDS ORDERED: HYDROMORPHONE HCL 0.5 MG/ 0.5 ML SYRINGE (J1170 PER 1) IV PRN (14:15)
[2021-01-05] MEDS ORDERED: LR 1,000 ML IV SCH (14:15)
[2021-01-05] MEDS ORDERED: fentaNYL 100 MCG/2 ML INJECTION (J3010) IV PRN (14:15)
[2021-01-05] MEDS ORDERED: oxyCODONE 5MG TAB PO PRN (14:15)
[2021-01-05] MEDS ORDERED: ONDANSETRON 4MG/2ML VIAL IV PRN (14:15)
[2021-01-05 15:45] VITALS: BP 181/81
== END 2021-01-05 15:45 | disposition home or self-care (01) ==
LOC: M SDC 09:16
PROVIDERS: ATTEND Plastic Surgery Surgery of the Hand
DX: C50.012 Malignant neoplasm of nipple and areola, left female breast (principal); Z90.13 Acquired absence of bilateral breasts and nipples; Z98.82 Breast implant status; E78.5 Hyperlipidemia, unspecified; J30.1 Allergic rhinitis due to pollen; L23.9 Allergic contact dermatitis, unspecified cause; R06.83 Snoring; F17.210 Nicotine dependence, cigarettes, uncomplicated; Z79.899 Other long term (current) drug therapy
CPT/HCPCS: 11970; 81025; 88300; C9290; J0131; J0690; J1100; J1580; J2250; J2370; J2405; J3010; L8600

== ENCOUNTER → 2021-06-01 | Outpatient (CLI) | payer OTHER ==
[~2021-06-01] MED LIST changes: -D31000TA2 PO; -LIDOCAINE 1% MDV 20ML VIAL SQ PRN; -LR 1,000 ML IV ONE; +TRAM50TA2 PO; +VITA100093 PO; -ceFAZolin SOD 2 GM in IV 1 EA IV ONE
== END ==
LOC: M PLAIMG 08:29
PROVIDERS: ATTEND Internal Medicine Pulmonary Disease
DX: R91.1 Solitary pulmonary nodule (principal)

== ENCOUNTER → 2021-10-06 | Outpatient (CLI) | payer OTHER ==
[2021-10-06 13:53] LABS: BASO # 0.1 10^3/uL (0.0-0.2); BASO % 0.7 % (0.0-1.0); EOS # 0.2 10^3/uL (0.0-0.5); EOS % 1.9 % (0.0-3.0); HEMATOCRIT 38.7 % (36.0-47.0); HEMOGLOBIN 13.4 g/dl (12.0-15.5); LYMPH # 1.3 10^3/uL (1.5-5.0); LYMPH % 16.1 % (24.0-44.0); MEAN CORPUSCULAR HGB CONC 34.6 g/dl (32.0-36.5); MEAN CORPUSCULAR VOLUME 95.3 fl (80.0-96.0); MONO # 0.5 10^3/uL (0.0-0.8); MONO % 5.7 % (2.0-8.0); NEUTROPHILS # 6.1 10^3/uL (1.5-8.5); NEUTROPHILS % 75.4 % (36.0-66.0); PLATELET COUNT, AUTOMATED 188 10^3/uL (150-450); RED BLOOD COUNT 4.06 10^6/uL (4.00-5.40); WHITE BLOOD COUNT 8.1 10^3/uL (4.0-10.0)
[2021-10-06 14:24] LABS: ALBUMIN 3.7 GM/DL (3.2-5.2); ALT/SGPT 23 U/L (12-78); BILIRUBIN,TOTAL 0.7 MG/DL (0.2-1.0); BLOOD UREA NITROGEN 13 MG/DL (7-18); CALCIUM LEVEL 10.1 MG/DL (8.5-10.1); CARBON DIOXIDE LEVEL 26 MEQ/L (21-32); CHLORIDE LEVEL 110 MEQ/L (98-107); CREATININE FOR GFR 0.66 MG/DL (0.55-1.30); GLOMERULAR FILTRATION RATE > 60.0 (>58); GLUCOSE, FASTING 107 MG/DL (70-100); POTASSIUM SERUM 4.2 MEQ/L (3.5-5.1); SODIUM LEVEL 140 MEQ/L (136-145); THYROID STIMULATING HORMONE 0.561 uIU/ML (0.358-3.740); TOTAL PROTEIN 6.3 GM/DL (6.4-8.2)
== END ==
LOC: M PLALAB 09:52
PROVIDERS: ATTEND Physician Assistant
DX: C50.012 Malignant neoplasm of nipple and areola, left female breast (principal)

== ENCOUNTER → 2021-10-20 | Outpatient (REF) | payer OTHER ==
[2021-10-20 14:30] LABS: APPEARANCE, URINE CLEAR (CLEAR); BACTERIA, URINE AUTO 1+ (NEGATIVE); BILIRUBIN, URINE AUTO NEGATIVE (NEGATIVE); BLOOD, URINE BLOOD NEGATIVE (NEGATIVE); COLOR, URINE STRAW (YELLOW); GLUCOSE, URINE (UA) AUTO NEGATIVE (NEGATIVE); KETONE, URINE AUTO NEGATIVE (NEGATIVE); LEUKOCYTE ESTERASE, URINE AUTO NEGATIVE (NEGATIVE); NITRITE, URINE AUTO NEGATIVE (NEGATIVE); PROTEIN, URINE AUTO NEGATIVE (NEGATIVE); RBC, URINE AUTO 1 /HPF (0-3); SPECIFIC GRAVITY URINE AUTO 1.004 (1.002-1.035); SQUAMOUS EPITHELIAL CELL UR AU 0 /HPF (0-6); UROBILINOGEN, URINE AUTO 0.2 mg/dL (0.0-2.0); WBC, URINE AUTO 0 /HPF (0-3)
== END ==
LOC: M SFHCPLAZ 13:13
PROVIDERS: ATTEND Physician Assistant
DX: R10.32 Left lower quadrant pain (principal)

== ENCOUNTER → 2021-11-01 | Outpatient (CLI) | payer OTHER ==
[~2021-11-01] MED LIST changes: +GASTROGRAFIN SOLUTION 30ML (Q9963) As Ordered ONE; +ISOVUE-370 76% 100ML VIAL As Ordered ONE
== END ==
LOC: M RAD 14:10
PROVIDERS: ATTEND Physician Assistant
DX: N88.8 Other specified noninflammatory disorders of cervix uteri (principal); M51.35 Other intervertebral disc degeneration, thoracolumbar region; M43.07 Spondylolysis, lumbosacral region
CPT/HCPCS: 74177; Q9963; Q9967

== ENCOUNTER → 2021-11-10 | Outpatient (CLI) | payer OTHER ==
[~2021-11-10] MED LIST changes: -GASTROGRAFIN SOLUTION 30ML (Q9963) As Ordered ONE; -ISOVUE-370 76% 100ML VIAL As Ordered ONE
== END ==
LOC: M WHC 14:03
PROVIDERS: ATTEND Physician Assistant
DX: D25.9 Leiomyoma of uterus, unspecified (principal); N85.2 Hypertrophy of uterus

== ENCOUNTER → 2021-12-08 | Outpatient (CLI) | payer OTHER ==
[~2021-12-08] MED LIST changes: +IRBE150T7
== END ==
LOC: M WHC 13:01
PROVIDERS: ATTEND Physician Assistant
DX: D25.9 Leiomyoma of uterus, unspecified (principal)

== ENCOUNTER → 2022-06-22 | Outpatient (REF) | payer OTHER | LOC: M SFHCWAGY 17:48 | PROVIDERS: ATTEND Obstetrics & Gynecology | DX: Z12.4 Encounter for screening for malignant neoplasm of cervix (principal) ==

== ENCOUNTER → 2022-07-28 | Outpatient (CLI) | payer OTHER | LOC: M RAD 13:30 | PROVIDERS: ATTEND Internal Medicine Pulmonary Disease | DX: R91.8 Other nonspecific abnormal finding of lung field (principal) ==

== ENCOUNTER 2022-10-10 10:47 | Emergency (ER) | payer OTHER, SELFPAY ==
[~2022-10-10] VITALS: Ht 160 cm; Wt 75.8 kg
[2022-10-10 10:48] VITALS: TEMP 97.7
[2022-10-10 12:34] LABS: BASO % 0.7 % (0.0-1.0); EOS # 0.1 10^3/uL (0.0-0.5); EOS % 1.3 % (0.0-3.0); HEMATOCRIT 37.7 % (36.0-47.0); HEMOGLOBIN 12.7 g/dl (12.0-15.5); LYMPH # 1.1 10^3/uL (1.5-5.0); LYMPH % 20.8 % (24.0-44.0); MEAN CORPUSCULAR HEMOGLOBIN 31.9 pg (27.0-33.0); MEAN CORPUSCULAR HGB CONC 33.7 g/dl (32.0-36.5); MEAN CORPUSCULAR VOLUME 94.7 fl (80.0-96.0); MONO # 0.3 10^3/uL (0.0-0.8); MONO % 4.9 % (2.0-8.0); NEUTROPHILS # 3.9 10^3/uL (1.5-8.5); NEUTROPHILS % 71.9 % (36.0-66.0); PLATELET COUNT, AUTOMATED 190 10^3/uL (150-450); RED BLOOD COUNT 3.98 10^6/uL (4.00-5.40); WHITE BLOOD COUNT 5.5 10^3/uL (4.0-10.0)
[2022-10-10 12:58] LABS: BLOOD UREA NITROGEN 12 MG/DL (9-23); CALCIUM LEVEL 9.5 MG/DL (8.5-10.1); CARBON DIOXIDE LEVEL 26 MMOL/L (20-31); CHLORIDE LEVEL 105 MMOL/L (98-107); CREATININE FOR GFR 0.74 MG/DL (0.55-1.30); GLOMERULAR FILTRATION RATE > 60.0 (>58); GLUCOSE, FASTING 129 MG/DL (60-100); POTASSIUM SERUM 3.6 MMOL/L (3.5-5.1); SODIUM LEVEL 139 MMOL/L (136-145)
[2022-10-10 13:00] LABS: CPK CREATINE PHOSPHOKINASE 73 U/L (34-145); MB/CK RELATIVE INDEX 1.36 (< OR =4)
[2022-10-10] MEDS ORDERED: ISOVUE-370 76% 100ML VIAL As Ordered ONE (13:21)
[2022-10-10 13:46] LABS: HCG, SERUM QUALITATIVE NEGATIVE (NEGATIVE)
[2022-10-10 14:02] VITALS: O2SAT 98
[2022-10-10 14:02] LABS: MAGNESIUM LEVEL 1.7 MG/DL (1.8-2.4); PHOSPHORUS LEVEL 2.6 MG/DL (2.5-4.9)
[2022-10-10 14:05] LABS: FREE T4 1.16 NG/DL (0.89-1.76); THYROID STIMULATING HORMONE 0.664 uIU/ML (0.55-4.78)
[2022-10-10 14:43] LABS: CK-MB VALUE MASS < 1.0 NG/ML (<3.6)
[2022-10-10 14:45] LABS: CPK CREATINE PHOSPHOKINASE 63 U/L (34-145); MB/CK RELATIVE INDEX 1.58 (< OR =4)
[2022-10-10] MEDS ORDERED: IRBESARTAN 150MG TAB PO ONE (15:05)
[2022-10-10] MEDS ORDERED: CARVedilol 6.25 MG TAB PO ONE (17:35)
[2022-10-10] MEDS ORDERED: IRBE150T7 PO (17:45)
[2022-10-10] MEDS ORDERED: CARV6.25 PO (17:45)
[2022-10-10 18:09] VITALS: BP 188/93
[2022-10-10 19:04] VITALS: BP 180/90
== END 2022-10-10 19:15 | disposition home or self-care (01) ==
LOC: M ED 10:47
DX: R00.2 Palpitations (principal); I10 Essential (primary) hypertension; E78.5 Hyperlipidemia, unspecified; D25.9 Leiomyoma of uterus, unspecified; Z85.3 Personal history of malignant neoplasm of breast; F17.200 Nicotine dependence, unspecified, uncomplicated; Z79.899 Other long term (current) drug therapy
CPT/HCPCS: 36415; 70450; 71045; 71275; 80048; 82550; 82553; 83735; 84100; 84439; 84443; 84703; 85025; 93005; 99284; Q9967

== ENCOUNTER → 2023-05-12 | Outpatient (CLI) | payer OTHER ==
[~2023-05-12] MED LIST changes: +CARV6.25 PO; +ESCITALOPRAM; +IRBE150T27; +IRBE150T27 PO; -IRBE150T7
== END ==
LOC: M RAD 08:18
PROVIDERS: ATTEND Physician Assistant
DX: R03.0 Elevated blood-pressure reading, without diagnosis of hypertension (principal); R39.15 Urgency of urination

== ENCOUNTER → 2023-07-25 | Outpatient (CLI) | payer OTHER ==
[~2023-07-25] MED LIST changes: +AMLO1TAB24; +CLON0.5T2; +DOXY-323 PO; -DOXY-443 PO
[2023-07-25 15:39] LABS: BASO # 0.1 10^3/uL (0.0-0.2); BASO % 0.8 % (0.0-1.0); EOS # 0.1 10^3/uL (0.0-0.5); EOS % 1.1 % (0.0-3.0); HEMOGLOBIN 13.2 g/dl (12.0-15.5); LYMPH # 1.4 10^3/uL (1.5-5.0); LYMPH % 22.2 % (24.0-44.0); MEAN CORPUSCULAR HEMOGLOBIN 34.8 pg (27.0-33.0); MEAN CORPUSCULAR HGB CONC 34.7 g/dl (32.0-36.5); MEAN CORPUSCULAR VOLUME 100.3 fl (80.0-96.0); MONO # 0.4 10^3/uL (0.0-0.8); MONO % 6.3 % (2.0-8.0); NEUTROPHILS # 4.4 10^3/uL (1.5-8.5); NEUTROPHILS % 69.3 % (36.0-66.0); PLATELET COUNT, AUTOMATED 170 10^3/uL (150-450); RED BLOOD COUNT 3.79 10^6/uL (4.00-5.40); WHITE BLOOD COUNT 6.4 10^3/uL (4.0-10.0)
[2023-07-25 16:13] LABS: FOLLICLE STIMULATING HORMONE 26.2 mIU/ML; FREE T4 1.31 NG/DL (0.89-1.76); LUTEINIZING HORMONE 9.3 mIU/ML; THYROID STIMULATING HORMONE 0.567 uIU/ML (0.55-4.78)
[2023-07-25 16:22] LABS: ALBUMIN 3.7 G/DL (3.2-5.2); ALKALINE PHOSPHATASE 57 U/L (46-116); ALT/SGPT 38 U/L (7.0-40); AST/SGOT 26 U/L (<34); BLOOD UREA NITROGEN 11 MG/DL (9-23); CALCIUM LEVEL 9.9 MG/DL (8.5-10.1); CARBON DIOXIDE LEVEL 28 MMOL/L (20-31); CHLORIDE LEVEL 107 MMOL/L (98-107); CHOLESTEROL LEVEL 163 MG/DL (<200); CHOLESTEROL RISK RATIO 3.14 (<5); CREATININE FOR GFR 0.69 MG/DL (0.55-1.30); GLOMERULAR FILTRATION RATE > 60.0 (>58); GLUCOSE, FASTING 102 MG/DL (60-100); HDL CHOLESTEROL 51.8 MG/DL (>40); LDL CHOLESTEROL 87.2 MG/DL (<100); NON-HDL-C 111.2 MG/DL; POTASSIUM SERUM 4.4 MMOL/L (3.5-5.1); SODIUM LEVEL 140 MMOL/L (136-145); TOTAL PROTEIN 6.4 G/DL (5.7-8.2); TRIGLYCERIDES LEVEL 120 MG/DL (<150)
== END ==
LOC: M PLALAB 12:56
PROVIDERS: ATTEND Physician Assistant
DX: I10 Essential (primary) hypertension (principal); E55.9 Vitamin D deficiency, unspecified; E78.2 Mixed hyperlipidemia; N95.1 Menopausal and female climacteric states; R63.4 Abnormal weight loss; R73.01 Impaired fasting glucose

== ENCOUNTER → 2023-07-28 | Outpatient (CLI) | payer OTHER | LOC: M RAD 08:14 | PROVIDERS: ATTEND Physician Assistant | DX: S69.91XA Unspecified injury of right wrist, hand and finger(s), initial encounter (principal); Y92.9 Unspecified place or not applicable; Y93.9 Activity, unspecified ==

== ENCOUNTER 2023-12-14 12:45 | Day surgery (SDC) | payer OTHER ==
[~2023-12-14] VITALS: Ht 160 cm; Wt 75.6 kg
[~2023-12-14 12:45] MED LIST changes: -AMLO1TAB24; +AMLO1TAB24 PO; -CLON0.5T2; +CLON0.5T2 PO; +GALZ50CA PO; +IRBE300T25 PO; +NS 1,000 ML IV ONE; +VENL37.598 PO
[2023-12-14] MEDS ORDERED: propofoL 200 MG/20 ML VIAL As Ordered ONE (14:53)
[2023-12-14] MEDS ORDERED: LIDOCAINE 2% 100MG/5ML SDV (FOR ANES.) As Ordered ONE (14:53)
[2023-12-14] MEDS ORDERED: fentaNYL 100 MCG/2 ML INJECTION As Ordered ONE (15:39)
[2023-12-14 15:59] VITALS: TEMP 99.5
[2023-12-14 16:18] VITALS: BP 133/83; O2SAT 98
[2023-12-19] MEDS ORDERED: TAMO20TA8 PO (09:41)
== END 2023-12-14 16:30 | disposition home or self-care (01) ==
LOC: M OPP 12:45
PROVIDERS: ATTEND Internal Medicine Gastroenterology
DX: Z12.11 Encounter for screening for malignant neoplasm of colon (principal); Z12.12 Encounter for screening for malignant neoplasm of rectum; K63.5 Polyp of colon; K57.30 Diverticulosis of large intestine without perforation or abscess without bleeding; K64.8 Other hemorrhoids; I10 Essential (primary) hypertension; Z85.3 Personal history of malignant neoplasm of breast; Z92.21 Personal history of antineoplastic chemotherapy; Z79.899 Other long term (current) drug therapy; F17.210 Nicotine dependence, cigarettes, uncomplicated; Z90.13 Acquired absence of bilateral breasts and nipples
CPT/HCPCS: 45385; 88305; J3010

== ENCOUNTER → 2024-04-19 | Outpatient (REF) | payer OTHER ==
[~2024-04-19] MED LIST changes: -DOXY-323 PO; +DOXY-441 PO; +GABA-1172 PO; -GABA-282 PO; -NS 1,000 ML IV ONE
== END ==
LOC: M LAB REF 08:35
PROVIDERS: ATTEND Nurse Practitioner Family
DX: R19.7 Diarrhea, unspecified (principal)

== ENCOUNTER → 2024-07-26 | Outpatient (CLI) | payer OTHER ==
[~2024-07-26] MED LIST changes: -GALZ50CA PO; +K-TA1TAB PO; +VENL75CA47 PO; +ZINC50CA4 PO
[2024-07-26 13:32] LABS: ALBUMIN 3.8 G/DL (3.2-5.2); ALKALINE PHOSPHATASE 61 U/L (35-104); ALT/SGPT 16 U/L (7.0-40); AST/SGOT 32 U/L (<34); BLOOD UREA NITROGEN 9 MG/DL (9-23); CALCIUM LEVEL 9.9 MG/DL (8.5-10.1); CARBON DIOXIDE LEVEL 33 MMOL/L (20-31); CHLORIDE LEVEL 102 MMOL/L (98-107); CREATININE FOR GFR 0.63 MG/DL (0.55-1.30); GLOMERULAR FILTRATION RATE > 90.0 (>58); GLUCOSE, FASTING 121 MG/DL (60-100); SODIUM LEVEL 144 MMOL/L (136-145); TOTAL PROTEIN 6.3 G/DL (5.7-8.2)
== END ==
LOC: M PLALAB 10:22
PROVIDERS: ATTEND Nurse Practitioner Family
DX: E87.6 Hypokalemia (principal)

== ENCOUNTER 2025-02-07 11:09 | Emergency (ER) | payer OTHER ==
[~2025-02-07] VITALS: Ht 160 cm; Wt 71.8 kg
[~2025-02-07 11:09] MED LIST changes: -PROC5TAB57 PO; +PROC5TAB81 PO
[2025-02-07 12:24] LABS: BASO # 0.0 10^3/uL (0.0-0.2); BASO % 0.6 % (0.0-1.0); EOS # 0.0 10^3/uL (0.0-0.5); EOS % 0.9 % (0.0-3.0); LYMPH # 0.8 10^3/uL (1.5-5.0); LYMPH % 16.6 % (24.0-44.0); MONO # 0.2 10^3/uL (0.0-0.8); MONO % 3.9 % (2.0-8.0); NEUTROPHILS # 3.6 10^3/uL (1.5-8.5); NEUTROPHILS % 77.4 % (36.0-66.0); PLATELET COUNT, AUTOMATED 119 10^3/uL (150-450)
[2025-02-07 12:51] LABS: CK-MB VALUE MASS 1.0 NG/ML (<3.6)
[2025-02-07 12:52] LABS: CALCIUM LEVEL 9.6 MG/DL (8.5-10.1); CARBON DIOXIDE LEVEL 30 MMOL/L (20-31); CHLORIDE LEVEL 97 MMOL/L (98-107); CPK CREATINE PHOSPHOKINASE 43 U/L (34-145); CREATININE FOR GFR 0.70 MG/DL (0.55-1.30); GLOMERULAR FILTRATION RATE > 90.0 (>58); MAGNESIUM LEVEL 1.3 MG/DL (1.8-2.4); MB/CK RELATIVE INDEX 2.32 (< OR =4); POTASSIUM SERUM 3.1 MMOL/L (3.5-5.1); SODIUM LEVEL 138 MMOL/L (136-145)
[2025-02-07] MEDS ORDERED: MAGNESIUM SULFATE 1 GM/100 ML D5W BAG (10MG/ML) As Ordered ONE (15:03)
[2025-02-07] MEDS ORDERED: POTASSIUM CHLORIDE 10MEQ/100ML SWI As Ordered ONE (15:03)
[2025-02-07] MEDS: NS (Normal Saline) 0.9% 1,000 ML IV ONE (15:06)
[2025-02-07] MEDS: KCL 10MEQ/100ML SWI (KRUN) 10 MEQ in IV 1 EA IV ONE (15:06)
[2025-02-07] MEDS: MAG SULF 1GM/100ML (MAG RUN) 1 GM in IV 1 EA IV ONE (15:09)
[2025-02-07 17:28] LABS: CK-MB VALUE MASS < 1.0 NG/ML (<3.6)
[2025-02-07 17:30] LABS: CPK CREATINE PHOSPHOKINASE 36 U/L (34-145)
[2025-02-07] MEDS ORDERED: SLOW1TAB3 PO (18:44)
[2025-02-07 18:56] VITALS: BP 131/78; TEMP 97.8; O2SAT 95
[2025-02-07] MEDS ORDERED: THIAMINE 100 MG TAB PO SCH (21:00)
[2025-02-08] MEDS ORDERED: MULTIVITAMINS/MINERALS THERAP 1 TAB PO SCH (09:00)
[2025-02-08] MEDS ORDERED: FOLIC ACID 1 MG TAB PO SCH (09:00)
[2025-02-17] MEDS ORDERED: B-12100021 PO (09:37)
== END 2025-02-07 19:08 | disposition home or self-care (01) ==
LOC: M ED 11:09
DX: E87.6 Hypokalemia (principal); E83.42 Hypomagnesemia; I10 Essential (primary) hypertension; F41.9 Anxiety disorder, unspecified; Z85.3 Personal history of malignant neoplasm of breast; F17.200 Nicotine dependence, unspecified, uncomplicated; Z79.899 Other long term (current) drug therapy
CPT/HCPCS: 70450; 80048; 82550; 82553; 83735; 84443; 84484; 85025; 93005; 96365; 96375; 99284; J3475